=== PATIENT | female | born 1935 | race Caucasian/White ===

== ENCOUNTER 2017-01-15 19:04 | Emergency (ER) | payer OTHER ==
[~2017-01-15] VITALS: Ht 154.9 cm; Wt 56.8 kg
[~2017-01-15 19:04] MED LIST: FENT12DI6 TD; ZOLP5TAB6 PO
[2017-01-15 19:08] VITALS: Ht 154.9 cm; Wt 56.8 kg
--- NOTE | 2017-01-15 20:57 | EMERGENCY ROOM VISIT NOTE ---
History Report prepared by Jef: Ildefonso Vilchis Under the Supervision of: Dr. Parvez Burgos D.O. First contact with patient: 20:46 Chief Complaint: WRIST PAIN Stated Complaint: LEFT HAND/WRIST PAIN History of Present Illness The patient is an 81 year old female who presents to the Emergency Room with complaints of persistent left wrist pain that started this morning. Per patient' s daughter, the caregiver called her when the patient woke up because the patient was complaining of left wrist pain. The caregiver noticed that it was swollen and the patient was unable to use her hand. The patient's daughter and the caregiver are unsure of why the wrist was swollen. They are unaware of any recent falls or trauma. The patient is not ambulatory at baseline. 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 Per patient's daughter, the patient is more confused than baseline. The patient's daughter denies fevers or vomiting. The patient's HPI is limited due to dementia. Source of History: family History Limited By: dementia Onset: this morning Position: wrist (left) Timing: other (persistent) Associated Symptoms: No fevers, No vomiting Note: Other associated symptoms: left wrist swelling, unable to use left wrist, more confused than usual Review of Systems The patient's ROS is limited due to dementia. Past Medical & Surgical Medical Problems: (1) Benign hypertension (2) Colitis (3) Gastroesophageal reflux disease (4) Parkinson's disease (5) UTI (lower urinary tract infection) Surgical Problems: (1) Hx of vaginal hysterectomy Family History Cardiovascular disease FHx: heart disease Social History Smoking Status: Never Smoker Alcohol Use: none Drug Use: none Marital Status: single Housing Status: lives alone Occupation Status: retired Current/Historical Medications Scheduled Docusate Sodium (Stool Softener), 100 MG PO DIRECTED Donepezil HCl (Donepezil HCl), 10 MG PO HS Fentanyl (Duragesic), 12 MCG TD [id number] Levodopa/Carbidopa (Carbidopa/Levodopa 25-250 mg), 1 TAB PO QID Lisinopril (Lisinopril), 2.5 MG PO DAILY Omeprazole (Prilosec), 20 MG PO QD@1700 Quetiapine Fumarate (Quetiapine Fumarate), 100 MG PO HS Zolpidem Tartrate (Zolpidem Tartrate), 5 MG PO HS Allergies Coded Allergies: Risperidone (Verified Allergy, Intermediate, HALLUCINATION, 12/21/15) Sulfamethoxazole w/Trimethoprim (Verified Allergy, Intermediate, CONFUSION , 12/21/15) Diclofenac (Verified Allergy, Unknown, ., 12/21/15) [place] (Verified Allergy, Unknown, UNKNOWN, 12/21/15) Ropinirole (Verified Adverse Reaction, Intermediate, hallucinations, ) Physical Exam Vital Signs Date Time Temp Pulse Resp B/P Pulse Ox O2 Delivery O2 Flow Rate FiO2 01/15/17 21:54 36.6 62 18 128/70 93 01/15/17 21:43 62 18 128/70 93 Room Air 01/15/17 19:08 36.6 60 18 136/72 92 Room Air Physical Exam GENERAL: Patient is awake alert appears somewhat anxious and uncomfortable. EYES: The conjunctivae are clear. The pupils are round and reactive. EARS, NOSE, MOUTH AND THROAT: The nose is without any evidence of any deformity. Mucous membranes are moist tongue is midline NECK: The neck is nontender and supple. RESPIRATORY: Normal respiratory effort is noted there is no evidence of wheezing rhonchi or rales CARDIOVASCULAR: Regular rate and rhythm noted there no murmurs rubs or gallops normal S1 normal S2 GASTROINTESTINAL: The abdomen is soft. Bowel sounds are present in all quadrants. Abdomen is nontender MUSCULOSKELETAL/EXTREMITIES: Swelling to left wrist, no erythema or warmth to left wrist, swelling appearing to be mostly on ventral aspect. SKIN: There is no obvious evidence of any rash. There are no petechiae, pallor or cyanosis noted. Trace pedal edema bilaterally. NEUROLOGIC: Patient is at baseline according to family members. Medical Decision & Procedures ER Provider Diagnostic Interpretation: X-ray results as stated below per interpretation by me and the radiologist. LEFT WRIST 2 VIEW CLINICAL HISTORY: Left wrist pain following injury. COMPARISON: Left hand radiographs December 18, 2015. FINDINGS: This exam is compromised by difficulty with positioning. There is chondrocalcinosis within the TFCC. No acute fracture of the distal left radius or ulna is identified. A lucency within the medial aspect of the triquetrum does not appear to represent an acute fracture. Soft tissue swelling overlying the ulna is noted. IMPRESSION: 1. Lucency within the medial aspect of the triquetrum. This could reflect artifact or an age indeterminate fracture but does not appear acute. This could be correlated with point tenderness. 2. Study compromised by difficulty with positioning. No definite acute fracture. Electronically signed by: Estevan Fraire M.D. 01/15/2017 9:01 PM Dictated Date/Time: 01/15/2017 8:57 PM ED Course 2045: The patient was evaluated in room A3. A complete history and physical examination were performed. 2114: At this time, I reevaluated the patient and she was resting. 2134: Upon reevaluation, the patient is resting. I discussed the results and treatment plan with her. She verbalized agreement of the treatment plan. The patient was discharged home. Medical Decision Differential diagnosis: Etiologies such as fracture, dislocation, neurovascular compromise, compartment syndrome, soft tissue injury, as well as others were entertained. Nursing notes reviewed. The patient is an 81-year-old female who presented to the emergency department with family members for an evaluation of swelling over her left wrist. The patient has a history of Parkinson's and has severe dementia. There is no definite history of trauma but the family states it is likely that she did hurt her wrist. The patient's wrist was swollen and tender there is also some slight area of ecchymosis. It was not warm or erythematous. I do not feel it represents an infectious process rather I feel represents a trauma. The patient' s x-ray showed a questionable fracture of unknown acuity. The patient was placed in a splint. The family was given follow-up information with the on-call hand specialist. There are also encouraged to continue all medications as prescribed and encouraged to use Tylenol for pain. There were also encouraged to follow-up with the Specialist As Scheduled and See the Family Doctor As Well. There Are Also Encouraged to Return to the Emergency Department Immediately If Symptoms Change Worsen or the Need Arises. Impression Primary Impression: Fracture of left carpal bone Scribe Attestation The scribe's documentation has been prepared under my direction and personally reviewed by me in its entirety. I confirm that the note above accurately reflects all work, treatment, procedures, and medical decision making performed by me. Departure Information Dispostion Home / Self-Care Referrals Manohar Florez M.D. (PCP) Forms HOME CARE DOCUMENTATION FORM, IMPORTANT VISIT INFORMATION, WORK / SCHOOL INSTRUCTIONS Patient Instructions Fx [facility], My [facility] Additional Instructions Call the orthopedic physician in the morning to schedule a follow-up appointment. Continue all medications as prescribed. Continue using Tylenol as directed for pain.
--- NOTE | 2017-01-15 21:03 | DIAGNOSTIC IMAGING REPORT ---
LEFT WRIST 2 VIEW CLINICAL HISTORY: Left wrist pain following injury. COMPARISON: Left hand radiographs December 18, 2015. FINDINGS: This exam is compromised by difficulty with positioning. There is chondrocalcinosis within the TFCC. No acute fracture of the distal left radius or ulna is identified. A lucency within the medial aspect of the triquetrum does not appear to represent an acute fracture. Soft tissue swelling overlying the ulna is noted. IMPRESSION: 1. Lucency within the medial aspect of the triquetrum. This could reflect artifact or an age indeterminate fracture but does not appear acute. This could be correlated with point tenderness. 2. Study compromised by difficulty with positioning. No definite acute fracture. Electronically signed by: Estevan Fraire M.D. 01/15/2017 9:01 PM Dictated Date/Time: 01/15/2017 8:57 PM
[2017-01-15 21:54] VITALS: BP 128/70; PULSE 62; TEMP 36.6; O2SAT 93
[2017-07-13] MEDS ORDERED: LSN25 PO (13:25)
[2017-07-13] MEDS ORDERED: [UNRECOGNIZED DRUG - CODE] PO (13:25)
[2017-07-13] MEDS ORDERED: ARC10 PO (13:25)
[2017-07-13] MEDS ORDERED: SRQ100 PO (13:25)
[2017-07-20] MEDS ORDERED: LDDP5 TD (11:13)
[2017-07-20] MEDS ORDERED: DRGTP12 TOP (11:13)
[2017-07-20] MEDS ORDERED: CEFU250T15 PO (11:13)
== END 2017-01-15 21:43 | disposition home or self-care (01) ==
LOC: C.EDB 19:05 → C.EDA 21:43
DX: S62.102A Fracture of unspecified carpal bone, left wrist, initial encounter for closed fracture (principal); X58.XXXA Exposure to other specified factors, initial encounter; I10 Essential (primary) hypertension; K21.9 Gastro-esophageal reflux disease without esophagitis; G20 Parkinson's disease

== ENCOUNTER → 2017-02-08 | Outpatient (CLI) | payer OTHER ==
[~2017-02-08] MED LIST changes: +ALEN70TA4 PO; +ARC10 PO; +CEFU250T15 PO; +DOCU100C PO; +DRGTP12 TOP; +LDDP5 TD; +LSN25 PO; +MELA1TAB54 PO; +PRLSR20 PO; +SRQ100 PO; +[UNRECOGNIZED DRUG - CODE] PO
== END | disposition home or self-care (01) ==
LOC: C.RDSM 14:13
PROVIDERS: ATTEND Orthopaedic Surgery Sports Medicine
DX: M25.532 Pain in left wrist (principal)

== ENCOUNTER 2017-07-13 15:12 | Emergency (ER) | payer OTHER ==
[~2017-07-13] VITALS: Ht 154.9 cm; Wt 46.7 kg
[~2017-07-13 15:12] MED LIST changes: -ALEN70TA4 PO; -CEFU250T15 PO; -DOCU100C PO; -DRGTP12 TOP; -LDDP5 TD; -MELA1TAB54 PO; -PRLSR20 PO
[2017-07-13 15:24] VITALS: TEMP 36.7; Ht 154.9 cm; Wt 46.7 kg
[2017-07-13] MEDS ORDERED: SODIUM CHLORIDE 0.9% 1000ML 1,000 ML IV STA (15:41)
[2017-07-13] MEDS ORDERED: FENTANYL CITRATE INJ 50 MCG/1 ML 2 ML VIAL IV STA (15:41)
--- NOTE | 2017-07-13 15:56 | EMERGENCY ROOM VISIT NOTE ---
History Report prepared by Jef: Frederick Stapleton Under the Supervision of: Dr. Melisa Bolaños D.O. First contact with patient: 15:28 Chief Complaint: BACK PAIN Stated Complaint: LOWER BACK PAIN History of Present Illness The patient is an 81 year old female who presents to the Emergency Room with complaints of worsening lower back pain beginning 3 days ago. The patient's daughter states that the patient's pain radiates around the left side of her lower back to her lower abdomen. She reports that the patient has been complaining of left knee pain that radiates to her hip, and her left leg looks different. The daughter notes that the patient has had to swallow more often when eating. She reports the patient is also weak, and she is having difficulty ambulating. She states that the patient stays in a wheelchair at home and receives 24/ care. The daughter reports that the patient has not been eating regularly, and she has been experiencing chills. She denies fevers, diarrhea, hematochezia, dysuria, hematuria, and recent trauma. The daughter notes that she has been using pain patches from [employer]. She states she called the patient 's doctor and was given a prescription for Fentanyl patches, but the pharmacy was out of stock. The patient has a history of Parkinson's disease and dementia. Source of History: family (daughter) Onset: 3 days ago Position: back (lower) Timing: worsening Associated Symptoms: + chills, + abdominal pain, + weakness, No fevers, No hematochezia, No diarrhea Note: Associated symptoms: left knee pain, hip pain, difficulty swallowing, difficultly ambulating, decreased appetite Denies: dysuria, hematuria, recent trauma Review of Systems See HPI for pertinent positives & negatives. A total of 10 systems reviewed and were otherwise negative. Past Medical & Surgical Medical Problems: (1) Benign hypertension (2) Colitis (3) Gastroesophageal reflux disease (4) Parkinson's disease (5) UTI (lower urinary tract infection) Surgical Problems: (1) Hx of vaginal hysterectomy Family History Cardiovascular disease FHx: heart disease Social History Smoking Status: Never Smoker Alcohol Use: none Drug Use: none Marital Status: single Housing Status: lives alone Occupation Status: retired Current/Historical Medications Scheduled Alendronate Sodium (Fosamax), 70 MG PO WK Docusate Sodium (Stool Softener), 100 MG PO QAM Donepezil HCl (Donepezil HCl), 10 MG PO HS Fentanyl (Fentanyl), 12 MCG TOP [id number] Levodopa/Carbidopa (Carbidopa/Levodopa 25-250 mg), 1 TAB PO QID Lisinopril (Lisinopril), 2.5 MG PO QD@1700 Melatonin (Melatonin), 5 MG PO HS Omeprazole (Prilosec), 20 MG PO QD@1700 Quetiapine Fumarate (Quetiapine Fumarate), 100 MG PO HS Allergies Coded Allergies: Risperidone (Verified Allergy, Intermediate, HALLUCINATION, 12/21/15) Sulfamethoxazole w/Trimethoprim (Verified Allergy, Intermediate, CONFUSION , 12/21/15) Diclofenac (Verified Allergy, Unknown, ., 12/21/15) [place] (Verified Allergy, Unknown, UNKNOWN, 12/21/15) Ropinirole (Verified Adverse Reaction, Intermediate, hallucinations, ) Physical Exam Vital Signs Date Time Temp Pulse Resp B/P (MAP) Pulse Ox O2 Delivery O2 Flow Rate FiO2 07/13/17 21:13 64 21 91 07/13/17 21:01 136/90 07/13/17 20:58 70 24 84 07/13/17 20:43 68 23 97 07/13/17 20:30 161/99 07/13/17 20:28 68 20 95 07/13/17 20:13 71 14 94 07/13/17 20:12 69 07/13/17 20:05 146/104 07/13/17 19:58 71 25 95 07/13/17 19:43 75 28 93 07/13/17 19:23 77 18 154/66 96 Room Air 07/13/17 15:30 67 07/13/17 15:24 36.7 58 17 196/106 96 Room Air Physical Exam GENERAL: alert, well appearing, well nourished, no distress, non-toxic, elderly , cachectic EYE EXAM: normal conjunctiva, PERRL and EOM's grossly intact OROPHARYNX: no exudate, no erythema, lips, buccal mucosa, and tongue normal and mucous membranes are dry NECK: supple, no nuchal rigidity, no adenopathy, non-tender LUNGS: Clear to auscultation. Normal chest wall mechanics HEART: no murmurs, S1 normal and S2 normal ABDOMEN: abdomen soft, non-tender, normo-active bowel sounds, no masses, no rebound or guarding. PELVIC: Stable, no tenderness to palpation. BACK: Back is symmetrical on inspection and there is no deformity, no midline tenderness, no CVA tenderness. Left flank and low back are tender to palpation. SKIN: no rashes and no bruising UPPER EXTREMITIES: upper extremities are grossly normal. LOWER EXTREMITIES: No pitting edema. Atrophy bilaterally. No deformities. NEURO EXAM: Normal sensorium, cranial nerves II-XII grossly intact, normal speech, no gross weakness of arms, no gross weakness of legs. Generalized weakness. Medical Decision & Procedures ER Provider Diagnostic Interpretation: Radiology results have been interpreted by the radiologist and reviewed by me. CHEST ONE VIEW PORTABLE CLINICAL HISTORY: 81 years-old Female presenting with weakness, cough. TECHNIQUE: Portable upright AP view of the chest was obtained. COMPARISON: 07/10/2015. FINDINGS: Atherosclerosis of the aortic arch. Cardiac silhouette normal in size. Apparent masslike region in the left mid and upper lung. No other focal infiltrate. No large effusion or pneumothorax. Apparent radiolucency along the left superior paramediastinal region may represent a dilated gas filled esophagus. Previously noted fracture of the anterior right eighth rib is not appreciated on today's radiograph. S-shaped scoliotic curvature of the spine with associated degenerative change. Upper abdomen normal. IMPRESSION: 1. Findings concerning for mass in the left mid and upper lung. Further evaluation with CT is recommended. No other evidence of acute cardiopulmonary disease. Electronically signed by: Lorenzo Sotelo M.D. 07/13/2017 4:48 PM Dictated Date/Time: 07/13/2017 4:45 PM ADDENDUM ADDITIONAL IMPRESSION 5. Indeterminate left hepatic lesion. Further evaluation with right upper quadrant ultrasound versus dedicated contrast enhanced CT or MR of the liver recommended. The report will be called/faxed according to standard departmental protocol. Electronically signed by: Lorenzo Sotelo M.D. 07/13/2017 8:06 PM Dictated Date/Time: 07/13/2017 8:06 PM ORIGINAL REPORT ABD/PELVIS NO IV OR ORAL CONT CLINICAL HISTORY: 81 years-old Female presenting with abd pain/back pain. TECHNIQUE: Multidetector CT of the abdomen and pelvis was performed without the use of intravenous contrast. IV contrast: None. A dose lowering technique was used consistent with the principles of ALARA (as low as reasonably achievable). COMPARISON: 10/13/2015. CT DOSE (mGy.cm): The estimated cumulative dose is 364.10 mGy.cm. FINDINGS: Image quality is degraded by motion artifact. 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 Lung bases: Dependent opacities at the right lung base. Left atrial enlargement of the heart. Coronary artery and aortic valve calcification. Small pericardial effusion. No pleural effusion. Liver: Normal morphology. Normal density. Indeterminate lesion noted in the inferior left hepatic lobe (series 3 image 106). Biliary: Biliary ductal dilatation may be present, although stenosis is poorly evaluated the absence of intravenous contrast. Gallbladder sludge is suggested. Pancreas: Large duodenal diverticulum in the pancreatic head. Pancreatic parenchyma is atrophic. Spleen: Normal. Adrenal glands: Grossly normal. Kidneys and ureters: No nephrolithiasis. No hydronephrosis. Ureters poorly visualized. Bladder: Incompletely evaluated secondary to underdistention. Pelvic organs: Uterus surgically absent. Bowel: Sigmoid diverticulosis. Soft tissue in the right upper quadrant likely in the peripyloric region. Evaluation is highly limited due to motion artifact and the absence of oral and intravenous contrast. If present, this may represent abnormal wall thickening. No bowel obstruction, including no evidence of gastric outlet obstruction. Peritoneal cavity: No free fluid or intraperitoneal gas. Vasculature: Atherosclerosis of the normal caliber abdominal aorta. Lymph nodes: No enlarged lymph nodes in the abdomen or pelvis. Abdominal wall: Normal. Musculoskeletal: Postsurgical changes of 3 lag screw fixation across the left femoral neck. Degenerative changes of the pubic symphysis and lumbar spine as well as the sacroiliac joints. IMPRESSION: 1. Apparent soft tissue mass in the peripyloric region. Evaluation is highly limited due to motion artifact in the absence of oral or intravenous contrast. Further evaluation with CT with oral and intravenous contrast is recommended. No bowel obstruction. 2. No nephrolithiasis. 3. Dependent opacities in the right lung base, most likely atelectasis, although aspiration or infection cannot be excluded. 4. Postsurgical changes of left femoral neck fracture fixation. Electronically signed by: Lorenzo Sotelo M.D. 07/13/2017 6:30 PM Dictated Date/Time: 07/13/2017 6:[address] SCAN OF THE CHEST WITH IV CONTRAST CLINICAL HISTORY: Abnormal chest x-ray. COMPARISON STUDY: Chest x-ray dated 07/13/2017. Chest CT dated 09/05/2013. TECHNIQUE: Following the IV administration of 94 cc of Optiray 320, CT scan of the thorax was performed from the thoracic inlet to the upper abdomen. Images are reviewed in the axial, sagittal, and coronal planes. IV contrast was administered without complication. A dose lowering technique was utilized adhering to the principles of ALARA. The examination is degraded by motion artifact as well as by streak artifact from the patient's arms which could not be elevated above the chest. CT DOSE: 479.79 mGy.cm FINDINGS: Thyroid: Imaged portions of the thyroid gland are normal in size and attenuation. Thoracic aorta: There is atherosclerotic calcification of the thoracic aorta, which is normal in caliber and demonstrates standard 3-vessel arch anatomy. No dissection is seen. Pulmonary vasculature: The pulmonary trunk is normal in caliber. There are no filling defects identified in the central pulmonary vessels to indicate pulmonary embolus. Note that this examination was not protocoled for evaluation of the pulmonary arteries. Heart: The heart is normal in size and there is trace pericardial effusion. The coronary arteries are densely calcified. Lungs and pleural spaces: Evaluation of the lung parenchyma is significantly degraded by respiratory motion artifact. There is dependent atelectasis. No airspace consolidation is seen typical for pneumonia and there is no pleural effusion. The trachea and central airways are patent. No pulmonary lesion is identified. Mediastinum: There is no mediastinal lymphadenopathy. Marita: Clear. Axillae: There is no axillary lymphadenopathy. Upper abdomen: Partially visualized upper abdominal viscera is within normal limits. Skeletal structures: The skeletal structures are osteopenic. Degenerative change and hyperkyphosis are noted in the thoracic spine. No lytic or blastic bony lesions are seen. IMPRESSION: 1. Significantly streak and motion compromised examination. 2. There is no airspace consolidation or pleural effusion. 3. No left upper lobe abnormality is identified to correspond to the questioned chest x-ray findings. The x-ray findings were likely artifactual. No concerning pulmonary lesion is seen. Electronically signed by: Lonnie Lyles M.D. 07/13/2017 7:50 PM Dictated Date/Time: 07/13/2017 7:40 PM Laboratory Results 07/13/17 16:15 Red Blood Count 4.09, Mean Corpuscular Volume 93.2, Mean Corpuscular Hemoglobin 31.8, Mean Corpuscular Hemoglobin Concent 34.1, Mean Platelet Volume 9.4, Neutrophils (%) (Auto) 80.2, Lymphocytes (%) (Auto) 10.8, Monocytes (%) (Auto) 7.2, Eosinophils (%) (Auto) 0.9, Basophils (%) (Auto) 0.5, Neutrophils # (Auto) 6.25, Lymphocytes # (Auto) 0.84, Monocytes # (Auto) 0.56, Eosinophils # (Auto) 0.07, Basophils # (Auto) 0.04 07/13/17 16:15 Test 07/13/17 16:15 07/13/17 17:05 07/13/17 18:50 White Blood Count 7.79 K/uL (4.8-10.8) Red Blood Count 4.09 M/uL (4.2-5.4) Hemoglobin 13.0 g/dL (12.0-16.0) Hematocrit 38.1 % (37-47) Mean Corpuscular Volume 93.2 fL (80-100) Mean Corpuscular Hemoglobin 31.8 pg (25-34) Mean Corpuscular Hemoglobin Concent 34.1 g/dl (32-36) Platelet Count 312 K/uL (130-400) Mean Platelet Volume 9.4 fL (7.4-10.4) Neutrophils (%) (Auto) 80.2 % Lymphocytes (%) (Auto) 10.8 % Monocytes (%) (Auto) 7.2 % Eosinophils (%) (Auto) 0.9 % Basophils (%) (Auto) 0.5 % Neutrophils # (Auto) 6.25 K/uL (1.4-6.5) Lymphocytes # (Auto) 0.84 K/uL (1.2-3.4) Monocytes # (Auto) 0.56 K/uL (0.11-0.59) Eosinophils # (Auto) 0.07 K/uL (0-0.5) Basophils # (Auto) 0.04 K/uL (0-0.2) RDW Standard Deviation 44.3 fL (36.4-46.3) RDW Coefficient of Variation 13.0 % (11.5-14.5) Immature Granulocyte % (Auto) 0.4 % Immature Granulocyte # (Auto) 0.03 K/uL (0.00-0.02) Prothrombin Time 11.4 SECONDS (9.0-12.0) Prothromb Time International Ratio 1.1 (0.9-1.1) Est Creatinine Clear Calc Drug Dose 34.9 ml/min Estimated GFR () 68.5 Estimated GFR (Non- 59.1 BUN/Creatinine Ratio 24.1 (10-20) Calcium Level 9.3 mg/dl (8.5-10.1) Magnesium Level 1.9 mg/dl (1.8-2.4) Total Bilirubin 0.7 mg/dl (0.2-1) Aspartate Amino Transf (AST/SGOT) 18 U/L (15-37) Alanine Aminotransferase (ALT/SGPT) 9 U/L (12-78) Alkaline Phosphatase 53 U/L (45-117) Total Protein 7.1 gm/dl (6.4-8.2) Albumin 3.7 gm/dl (3.4-5.0) Globulin 3.4 gm/dl (2.5-4.0) Albumin/Globulin Ratio 1.1 (0.9-2) Bedside Hemoglobin 13.3 g/dl (12.0-16.0) Bedside Hematocrit 39 % (37-47) Bedside Sodium 143 mEq/L (135-144) Bedside Potassium 3.4 mEq/L (3.3-5.0) Bedside Chloride 102 mEq/L (101-112) Bedside Total CO2 28 mEq/l (24-31) Anion Gap 17.0 mmol/L (16-25) Bedside Blood Urea Nitrogen 22 mg/dl (7-18) Bedside Creatinine 0.9 mg/dl (0.6-1.3) Bedside Glucose (other) 120 mg/dl (70-99) Bedside Lactic Acid Venous 1.62 mmol/L (0.90-1.70) Bedside Ionized Calcium ([place]) 1.23 mmol/l (1.12-1.32) Urine Color DK YELLOW Urine Appearance CLEAR (CLEAR) Urine pH 5.0 (4.5-7.5) Urine Specific [place] 1.029 (1.000-1.030) Urine Protein NEG (NEG) Urine Glucose (UA) NEG (NEG) Urine Ketones 1+ (NEG) Urine Occult Blood NEG (NEG) Urine Nitrite NEG (NEG) Urine Bilirubin NEG (NEG) Urine Urobilinogen NEG (NEG) Urine Leukocyte Esterase NEG (NEG) Laboratory results per my review. Medications Administered Medications (Trade) Dose Ordered Sig/Luis Route Start Time Stop Time Status Last Admin Dose Admin Sodium Chloride 1,000 ml @ 250 mls/hr Q4H STAT IV 07/13/17 15:41 07/13/17 19:40 DC 07/13/17 15:41 250 MLS/HR Fentanyl Citrate (Fentanyl Inj) 25 mcg NOW STAT IV 07/13/17 15:41 07/13/17 15:43 DC 07/13/17 17:43 25 MCG Carbidopa/Levodopa (Sinemet 25/ 250MG Tab) 1 tab NOW STAT PO 07/13/17 17:52 07/13/17 17:54 DC 07/13/17 19:07 1 TAB Lorazepam (Ativan Inj) 0.5 mg NOW STAT IV 07/13/17 18:46 07/13/17 18:47 DC 07/13/17 19:05 0.5 MG Lisinopril (Zestril Tab) 2.5 mg TODAY@1752 PO 07/13/17 17:52 07/13/17 19:45 DC 07/13/17 19:25 2.5 MG Lidocaine (Lidoderm Patch 5%) 1 patch NOW STAT TD 07/13/17 21:31 07/13/17 21:32 DC 07/13/17 21:39 1 PATCH ECG Indication: weakness Rate (beats per minute): 57 Rhythm: sinus bradycardia Findings: 1st degree AV block, no acute ischemic change, other (Normal axis, normal QRS, normal QTc, low voltage throughout) ED Course 1529: The patient was evaluated in room A12A. A complete history and physical exam was performed. 1541: Ordered Fentanyl Citrate 25mcg IV, Sodium Chloride 1000 ml @ 250 mls/hr IV 175: Ordered Lisinopril 2.5mg PO, Carbidopa/Levodopa 1 tab PO 1833: I reevaluated the patient and updated her of her current exam findings. The patient is receiving her IV fluids. 1845: Ordered Ativan 0.5mg IV 2047: Upon reevaluation, the patient is feeling better. I discussed the findings and the treatment plan with the patient and her family. They verbalized agreement and understanding. The patient was discharged home. Medical Decision Differential diagnoses includes but is not limited to lumbar radiculopathy, muscle strain, facture, cauda equina, mass, and disc herniation, uti, pyelo, stone, aaa, dissection Patient had difficult exam with several chronic comorbidities and history limited by dementia. Patient with 24 7 caregivers in the home that helped family whom she lives with. Slightly decreased oral intake recently and family felt slightly more lethargic. Patient complained of pain and so was brought in for evaluation. Labs and imaging subsequently all reviewed, discussed with family, and found to be reassuring. Patient with stable vital signs here, was given IV fluid hydration as precaution given slightly decreased by mouth intake. Patient here afebrile, no evidence of bacteremia/sepsis. Discussed close follow-up with family doctor. Patient only been seen for back pain by family doctor and was to be started on a fentanyl patch. Patient given dose of pain medication here in Lidoderm patch applied to her back. Given negative evaluation at this time, additional bedside discussion with family was performed , they're comfortable taking her home and continuing her usual care and medications, and will follow-up with her family doctor next week. Discussed with him at length symptoms to watch and return for, possible differential diagnosis, they verbalized understanding were agreeable with plan. I do not feel patient's condition warranted additional spinal imaging including MRI at this time. Discussed with the family that should her back pain persist or worsen, that her family doctor may discuss this with them. Medication Reconcilliation Current Medication List: was personally reviewed by me Blood Pressure Screening Patient's blood pressure: Elevated blood pressure Blood pressure disposition: Referred to PCP Impression Primary Impression: Back pain Additional Impressions: Dementia Parkinson disease Dehydration Scribe Attestation The scribe's documentation has been prepared under my direction and personally reviewed by me in its entirety. I confirm that the note above accurately reflects all work, treatment, procedures, and medical decision making performed by me. Departure Information Dispostion Home / Self-Care Referrals Manohar Florez M.D. (PCP) Forms HOME CARE DOCUMENTATION FORM, IMPORTANT VISIT INFORMATION Patient Instructions My [facility] Additional Instructions Please follow up with your family doctor. They will receive copies of the studies from today. Please continue the regular medications as prescribed. Please continue to plan to start applying a pain patch. They may suggest additional testing based on the evaluation today. Please encouraged patient to eat and drink regularly. If you have any other new concerns including fevers, change in mentation, vomiting, diarrhea, or any other new concerns please return the emergency room. Problem Qualifiers Primary Impression: Back pain Back pain location: low back pain Chronicity: acute Back pain laterality: bilateral Sciatica presence: without sciatica Qualified Codes: M54.5 - Low back pain Additional Impressions: Dementia Dementia type: unspecified type Dementia behavioral disturbance: without behavioral disturbance Qualified Codes: F03.90 - Unspecified dementia without behavioral disturbance
[2017-07-13] MEDS ORDERED: ALEN70TA4 PO (15:57)
[2017-07-13] MEDS ORDERED: MELA1TAB54 PO (15:57)
[2017-07-13] MEDS ORDERED: DRGTP12 TOP (16:02)
[2017-07-13] MEDS ORDERED: DOCU100C PO (16:24)
[2017-07-13 16:25] LABS: BASO % 0.5 %; BASO ABS # 0.04 K/uL (0-0.2); COMPLETE YES; EOS % 0.9 %; HEMATOCRIT 38.1 % (37-47); IG% 0.4 %; LYMPH % 10.8 %; LYMPH ABS # 0.84 K/uL (1.2-3.4); MEAN CELL VOLUME 93.2 fL (80-100); MEAN CORPUSCULAR HEMOGLOBIN 31.8 pg (25-34); MEAN CORPUSCULAR HGB CONC 34.1 g/dl (32-36); MEAN PLATELET VOLUME 9.4 fL (7.4-10.4); MONO % 7.2 %; NEUT % 80.2 %; PLATELET COUNT 312 K/uL (130-400); RED BLOOD COUNT 4.09 M/uL (4.2-5.4); WHITE BLOOD COUNT 7.79 K/uL (4.8-10.8)
[2017-07-13 16:38] LABS: INR 1.1 (0.9-1.1); PROTHROMBIN TIME (PATIENT) 11.4 SECONDS (9.0-12.0)
[2017-07-13 16:45] LABS: BUN/CREATININE RATIO 24.1 (10-20); CALCIUM 9.3 mg/dl (8.5-10.1); CREATININE 0.9 mg/dl (0.60-1.20); MAGNESIUM 1.9 mg/dl (1.8-2.4); POTASSIUM 3.4 mmol/L (3.5-5.1)
--- NOTE | 2017-07-13 16:49 | DIAGNOSTIC IMAGING REPORT ---
CHEST ONE VIEW PORTABLE CLINICAL HISTORY: 81 years-old Female presenting with weakness, cough. TECHNIQUE: Portable upright AP view of the chest was obtained. COMPARISON: 07/10/2015. FINDINGS: Atherosclerosis of the aortic arch. Cardiac silhouette normal in size. Apparent masslike region in the left mid and upper lung. No other focal infiltrate. No large effusion or pneumothorax. Apparent radiolucency along the left superior paramediastinal region may represent a dilated gas filled esophagus. Previously noted fracture of the anterior right eighth rib is not appreciated on today's radiograph. S-shaped scoliotic curvature of the spine with associated degenerative change. Upper abdomen normal. IMPRESSION: 1. Findings concerning for mass in the left mid and upper lung. Further evaluation with CT is recommended. No other evidence of acute cardiopulmonary disease. Electronically signed by: Lorenzo Sotelo M.D. 07/13/2017 4:48 PM Dictated Date/Time: 07/13/2017 4:45 PM
[2017-07-13 16:50] LABS: ALB/GLOB RATIO 1.1 (0.9-2)
[2017-07-13] MEDS ORDERED: PRLSR20 PO (17:33)
[2017-07-13] MEDS ORDERED: LISINOPRIL 2.5 MG TAB PO SCH (17:52)
[2017-07-13] MEDS ORDERED: LISINOPRIL 20 MG TAB PO STA (17:52)
[2017-07-13] MEDS ORDERED: CARBIDOPA/LEVODOPA 25-250 1 EA TAB PO STA (17:52)
[2017-07-13] MEDS ORDERED: LISINOPRIL PO STA ×2 (18:15)
--- NOTE | 2017-07-13 18:31 | DIAGNOSTIC IMAGING REPORT ---
ADDENDUM ADDITIONAL IMPRESSION 5. Indeterminate left hepatic lesion. Further evaluation with right upper quadrant ultrasound versus dedicated contrast enhanced CT or MR of the liver recommended. The report will be called/faxed according to standard departmental protocol. Electronically signed by: Lorenzo Sotelo M.D. 07/13/2017 8:06 PM Dictated Date/Time: 07/13/2017 8:06 PM ORIGINAL REPORT ABD/PELVIS NO IV OR ORAL CONT CLINICAL HISTORY: 81 years-old Female presenting with abd pain/back pain. TECHNIQUE: Multidetector CT of the abdomen and pelvis was performed without the use of intravenous contrast. IV contrast: None. A dose lowering technique was used consistent with the principles of ALARA (as low as reasonably achievable). COMPARISON: 10/13/2015. CT DOSE (mGy.cm): The estimated cumulative dose is 364.10 mGy.cm. FINDINGS: Image quality is degraded by motion artifact. 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 Lung bases: Dependent opacities at the right lung base. Left atrial enlargement of the heart. Coronary artery and aortic valve calcification. Small pericardial effusion. No pleural effusion. Liver: Normal morphology. Normal density. Indeterminate lesion noted in the inferior left hepatic lobe (series 3 image 106). Biliary: Biliary ductal dilatation may be present, although stenosis is poorly evaluated the absence of intravenous contrast. Gallbladder sludge is suggested. Pancreas: Large duodenal diverticulum in the pancreatic head. Pancreatic parenchyma is atrophic. Spleen: Normal. Adrenal glands: Grossly normal. Kidneys and ureters: No nephrolithiasis. No hydronephrosis. Ureters poorly visualized. Bladder: Incompletely evaluated secondary to underdistention. Pelvic organs: Uterus surgically absent. Bowel: Sigmoid diverticulosis. Soft tissue in the right upper quadrant likely in the peripyloric region. Evaluation is highly limited due to motion artifact and the absence of oral and intravenous contrast. If present, this may represent abnormal wall thickening. No bowel obstruction, including no evidence of gastric outlet obstruction. Peritoneal cavity: No free fluid or intraperitoneal gas. Vasculature: Atherosclerosis of the normal caliber abdominal aorta. Lymph nodes: No enlarged lymph nodes in the abdomen or pelvis. Abdominal wall: Normal. Musculoskeletal: Postsurgical changes of 3 lag screw fixation across the left femoral neck. Degenerative changes of the pubic symphysis and lumbar spine as well as the sacroiliac joints. IMPRESSION: 1. Apparent soft tissue mass in the peripyloric region. Evaluation is highly limited due to motion artifact in the absence of oral or intravenous contrast. Further evaluation with CT with oral and intravenous contrast is recommended. No bowel obstruction. 2. No nephrolithiasis. 3. Dependent opacities in the right lung base, most likely atelectasis, although aspiration or infection cannot be excluded. 4. Postsurgical changes of left femoral neck fracture fixation. Electronically signed by: Lorenzo Sotelo M.D. 07/13/2017 6:30 PM Dictated Date/Time: 07/13/2017 6:17 PM
[2017-07-13] MEDS ORDERED: OPTIRAY 320 IV PRN (18:45)
[2017-07-13] MEDS ORDERED: LORAZEPAM 2 MG/ML 1 ML VIAL IV STA (18:46)
[2017-07-13 19:04] LABS: URINE APPEARANCE CLEAR (CLEAR); URINE COLOR DK YELLOW; URINE NITRITE NEG (NEG); URINE SPECIFIC GRAVITY 1.029 (1.000-1.030); UROBILINOGEN NEG (NEG)
[2017-07-13 19:09] LABS: MANUAL MICROSCOPIC REQUIRED? NO; REVIEW REQ? NO; URINE BILIRUBIN NEG (NEG)
--- NOTE | 2017-07-13 19:52 | DIAGNOSTIC IMAGING REPORT ---
CT SCAN OF THE CHEST WITH IV CONTRAST CLINICAL HISTORY: Abnormal chest x-ray. COMPARISON STUDY: Chest x-ray dated 07/13/2017. Chest CT dated 09/05/2013. TECHNIQUE: Following the IV administration of 94 cc of Optiray 320, CT scan of the thorax was performed from the thoracic inlet to the upper abdomen. Images are reviewed in the axial, sagittal, and coronal planes. IV contrast was administered without complication. A dose lowering technique was utilized adhering to the principles of ALARA. The examination is degraded by motion artifact as well as by streak artifact from the patient's arms which could not be elevated above the chest. CT DOSE: 479.79 mGy.cm FINDINGS: Thyroid: Imaged portions of the thyroid gland are normal in size and attenuation. Thoracic aorta: There is atherosclerotic calcification of the thoracic aorta, which is normal in caliber and demonstrates standard 3-vessel arch anatomy. No dissection is seen. Pulmonary vasculature: The pulmonary trunk is normal in caliber. There are no filling defects identified in the central pulmonary vessels to indicate pulmonary embolus. Note that this examination was not protocoled for evaluation of the pulmonary arteries. Heart: The heart is normal in size and there is trace pericardial effusion. The coronary arteries are densely calcified. Lungs and pleural spaces: Evaluation of the lung parenchyma is significantly degraded by respiratory motion artifact. There is dependent atelectasis. No airspace consolidation is seen typical for pneumonia and there is no pleural effusion. The trachea and central airways are patent. No pulmonary lesion is identified. Mediastinum: There is no mediastinal lymphadenopathy. Marita: Clear. Axillae: There is no axillary lymphadenopathy. Upper abdomen: Partially visualized upper abdominal viscera is within normal limits. Skeletal structures: The skeletal structures are osteopenic. Degenerative change and hyperkyphosis are noted in the thoracic spine. No lytic or blastic bony lesions are seen. IMPRESSION: 1. Significantly streak and motion compromised examination. 2. There is no airspace consolidation or pleural effusion. 3. No left upper lobe abnormality is identified to correspond to the questioned chest x-ray findings. The x-ray findings were likely artifactual. No concerning pulmonary lesion is seen. Electronically signed by: Lonnie Lyles M.D. 07/13/2017 7:50 PM Dictated Date/Time: 07/13/2017 7:40 PM
[2017-07-13 21:01] VITALS: BP 136/90
[2017-07-13 21:13] VITALS: PULSE 64; O2SAT 91
[2017-07-13] MEDS ORDERED: LIDODERM (LIDOCAINE) PATCH 5% TD STA (21:31)
[2017-07-14 14:51] LABS: ISTAT CREATININE 0.9 mg/dl (0.6-1.3); ISTAT HEMOGLOBIN 13.3 g/dl (12.0-16.0); ISTAT IONIZED CALCIUM 1.23 mmol/l (1.12-1.32)
[2017-07-20] MEDS ORDERED: DRGTP12 TOP (11:13)
[2017-07-20] MEDS ORDERED: LDDP5 TD (11:13)
[2017-07-20] MEDS ORDERED: CEFU250T15 PO (11:13)
== END 2017-07-13 21:41 | disposition home or self-care (01) ==
LOC: EDBD 15:12 → C.EDA 15:13
DX: M54.5 Low back pain (principal); F03.90 Unspecified dementia, unspecified severity, without behavioral disturbance, psychotic disturbance, mood disturbance, and anxiety; G20 Parkinson's disease; E86.0 Dehydration; I10 Essential (primary) hypertension; K52.9 Noninfective gastroenteritis and colitis, unspecified; K21.9 Gastro-esophageal reflux disease without esophagitis; Z82.49 Family history of ischemic heart disease and other diseases of the circulatory system

== ENCOUNTER 2017-07-15 14:29 | Inpatient (IN) | payer OTHER ==
[~2017-07-15] VITALS: Ht 160 cm; Wt 42.4 kg
[~2017-07-15 14:29] MED LIST changes: +ALEN70TA4 PO; +DOCU100C PO; +DRGTP12 TOP; -FENT12DI6 TD; +MELA1TAB54 PO; +PRLSR20 PO; -ZOLP5TAB6 PO
[2017-07-15] MEDS ORDERED: SODIUM CHLORIDE 0.9% 1000ML 1,000 ML IV ONE (14:51)
[2017-07-15] MEDS ORDERED: SODIUM CHLORIDE 0.9% 1000ML 1,000 ML IV STA (14:51)
--- NOTE | 2017-07-15 14:51 | EMERGENCY ROOM VISIT NOTE ---
History Report prepared by Jef: Tere Robbins Under the Supervision of: Dr. Go Hebert M.D. First contact with patient: 14:43 Stated Complaint: DEHYDRATION/CONFUSED History of Present Illness The patient is a 81 year old female who presents to the Emergency Room with complaints of weakness beginning 6 days ago. Per her daughter, the patient has lower back pain, wants to sleep all the time, and has not been taking her medications. Her daughter believes that the patient is dehydrated, as she has not been urinating frequently. The patient has not had any fevers, vomiting, or diarrhea. The patient lives at home with 24 hour care and has mild dementia. She has not had any recent falls, and is not on blood thinners. Source of History: patient Onset: 6 days ago Position: other (global) Quality: other (weakness) Associated Symptoms: + back pain (lower), No fevers, No vomiting, No diarrhea Review of Systems See HPI for pertinent positives & negatives. A total of 10 systems reviewed and were otherwise negative. Past Medical & Surgical Medical Problems: (1) Benign hypertension (2) Colitis (3) Gastroesophageal reflux disease (4) Parkinson's disease (5) UTI (lower urinary tract infection) Surgical Problems: (1) Hx of vaginal hysterectomy Old medical records were reviewed. Nurse's notes were reviewed and I agree with. Family History Cardiovascular disease FHx: heart disease Social History Smoking Status: Never Smoker Alcohol Use: none Drug Use: none Marital Status: single Housing Status: lives alone Occupation Status: retired Current/Historical Medications Scheduled Alendronate Sodium (Fosamax), 70 MG PO WK Docusate Sodium (Stool Softener), 100 MG PO QAM Donepezil HCl (Donepezil HCl), 10 MG PO HS Fentanyl (Fentanyl), 12 MCG TOP [id number] Levodopa/Carbidopa (Carbidopa/Levodopa 25-250 mg), 1 TAB PO QID Lisinopril (Lisinopril), 2.5 MG PO QD@1700 Melatonin (Melatonin), 5 MG PO HS Omeprazole (Prilosec), 20 MG PO QD@1700 Quetiapine Fumarate (Quetiapine Fumarate), 100 MG PO HS Allergies Coded Allergies: Risperidone (Verified Allergy, Intermediate, HALLUCINATION, 07/15/17) Sulfamethoxazole w/Trimethoprim (Verified Allergy, Intermediate, CONFUSION , 07/15/17) Diclofenac (Verified Allergy, Unknown, ., 07/15/17) [place] (Verified Allergy, Unknown, UNKNOWN, 07/15/17) Ropinirole (Verified Adverse Reaction, Intermediate, hallucinations, ) Physical Exam Vital Signs Date Time Temp Pulse Resp B/P (MAP) Pulse Ox O2 Delivery O2 Flow Rate FiO2 07/15/17 18:36 80 15 96 07/15/17 18:06 70 16 95 07/15/17 17:36 75 11 97 07/15/17 17:31 189/144 198/94 07/15/17 17:29 77 96 07/15/17 16:29 74 12 96 07/15/17 15:59 74 12 97 07/15/17 15:29 81 14 95 07/15/17 14:59 76 13 95 07/15/17 14:46 37.0 77 18 158/71 98 Room Air 07/15/17 14:40 82 07/15/17 14:34 158/71 Physical Exam General: Well developed well nourished ill older female in no acute distress, breathing comfortably on room air. Difficult to understand. Sleepy, but arousable. HEENT: Normal cephalic atraumatic. Pupils are equal round and reactive to light. Extraocular movements are intact. Oropharynx is pink with moist mucous membranes. No swelling of the mouth lips or tongue. Neck: Supple with a midline trachea. No meningeal signs or stiffness, no JVD or bruits. No Stridor. Chest: Clear to auscultation bilaterally. No wheezes or rhonchi. No increased work of breathing. Heart: regular rate and rhythm. Abdomen: Soft nontender, nondistended without rebound guarding or rigidity. Extremities: No cyanosis clubbing or edema. No calf tenderness or assymetry Spine/Back. Non tender to palpation. No CVA tenderness Skin: Good turgor without rashes. Neurologic exam: Cranial nerves two through 12 are intact. Motor and sensation are intact and symmetrical throughout. Medical Decision & Procedures ER Provider Diagnostic Interpretation: Radiology results as stated below per my review and radiologist interpretation: CHEST ONE VIEW PORTABLE CLINICAL HISTORY: 81 years-old Female presenting with CHEST PAIN. TECHNIQUE: Portable upright AP view of the chest was obtained. COMPARISON: 07/13/2017. FINDINGS: Atherosclerosis of aortic arch. Cardiac silhouette normal. Previously noted masslike region in the left midlung is consistent with costochondral calcification. No focal infiltrate. Questionable right pleural thickening or trace effusion. No large effusion or pneumothorax. Scoliosis. Upper abdomen normal. IMPRESSION: 1. No acute cardiopulmonary disease. Electronically signed by: Lorenzo Sotelo M.D. 07/15/2017 3:53 PM Dictated Date/Time: 07/15/2017 3:52 PM Radiology results as stated below per my review and radiologist interpretation: HEAD WITHOUT CONTRAST (CT) CLINICAL HISTORY: 81 years-old Female presenting with altered loc. TECHNIQUE: Multidetector CT imaging of the head was performed without the use of intravenous contrast. IV contrast: None. A dose lowering technique was used consistent with the principles of ALARA (as low as reasonably achievable). COMPARISON: 11/28/2015. CT DOSE (mGy.cm): The estimated cumulative dose is 1228.53 mGy.cm. FINDINGS: Nurse Transition topogram: Unremarkable. Quality is degraded by motion artifact. Ventricles and sulci normal in size. Periventricular and subcortical white matter hypoattenuation, nonspecific but likely indicative of chronic small vessel ischemic change. Old lacunar infarct in the left basal ganglia. No mass effect or midline shift. No hemorrhage or acute territorial infarct. No extra-axial fluid collection. Paranasal sinuses and mastoid air cells clear. Calvarium intact. IMPRESSION: 1. No acute intracranial pathology. 2. Chronic small vessel ischemic change and old lacunar infarct left basal ganglia. Electronically signed by: Lorenzo Sotelo M.D. 07/15/2017 5:12 PM Dictated Date/Time: 07/15/2017 5:10 PM Laboratory Results 07/15/17 15:24 Red Blood Count 4.03, Mean Corpuscular Volume 93.5, Mean Corpuscular Hemoglobin 32.3, Mean Corpuscular Hemoglobin Concent 34.5, Mean Platelet Volume 9.2, Neutrophils (%) (Auto) 70.5, Lymphocytes (%) (Auto) 16.6, Monocytes (%) (Auto) 9.2, Eosinophils (%) (Auto) 2.6, Basophils (%) (Auto) 0.9, Neutrophils # (Auto) 6.34, Lymphocytes # (Auto) 1.49, Monocytes # (Auto) 0.83, Eosinophils # (Auto) 0.23, Basophils # (Auto) 0.08 07/15/17 15:24 Test 07/15/17 15:24 07/15/17 15:32 07/15/17 15:33 07/15/17 16:30 White Blood Count 8.99 K/uL (4.8-10.8) Red Blood Count 4.03 M/uL (4.2-5.4) Hemoglobin 13.0 g/dL (12.0-16.0) Hematocrit 37.7 % (37-47) Mean Corpuscular Volume 93.5 fL (80-100) Mean Corpuscular Hemoglobin 32.3 pg (25-34) Mean Corpuscular Hemoglobin Concent 34.5 g/dl (32-36) Platelet Count 328 K/uL (130-400) Mean Platelet Volume 9.2 fL (7.4-10.4) Neutrophils (%) (Auto) 70.5 % Lymphocytes (%) (Auto) 16.6 % Monocytes (%) (Auto) 9.2 % Eosinophils (%) (Auto) 2.6 % Basophils (%) (Auto) 0.9 % Neutrophils # (Auto) 6.34 K/uL (1.4-6.5) Lymphocytes # (Auto) 1.49 K/uL (1.2-3.4) Monocytes # (Auto) 0.83 K/uL (0.11-0.59) Eosinophils # (Auto) 0.23 K/uL (0-0.5) Basophils # (Auto) 0.08 K/uL (0-0.2) RDW Standard Deviation 45.2 fL (36.4-46.3) RDW Coefficient of Variation 13.2 % (11.5-14.5) Immature Granulocyte % (Auto) 0.2 % Immature Granulocyte # (Auto) 0.02 K/uL (0.00-0.02) Anion Gap 7.0 mmol/L (3-11) Est Creatinine Clear Calc Drug Dose 23.8 ml/min Estimated GFR () 48.4 Estimated GFR (Non- 41.8 BUN/Creatinine Ratio 20.9 (10-20) Calcium Level 9.2 mg/dl (8.5-10.1) Total Bilirubin 0.6 mg/dl (0.2-1) Direct Bilirubin 0.2 mg/dl (0-0.2) Aspartate Amino Transf (AST/SGOT) 17 U/L (15-37) Alanine Aminotransferase (ALT/SGPT) 10 U/L (12-78) Alkaline Phosphatase 54 U/L (45-117) Total Protein 7.3 gm/dl (6.4-8.2) Albumin 3.9 gm/dl (3.4-5.0) Lipase 136 U/L (73-393) Thyroid Stimulating Hormone (TSH) 1.080 uIu/ml (0.300-4.500) Bedside Troponin I < 0.030 ng/ml (0-0.045) Bedside Lactic Acid Venous 1.75 mmol/L (0.90-1.70) Urine Color DK YELLOW Urine Appearance CLOUDY (CLEAR) Urine pH 5.0 (4.5-7.5) Urine Specific [place] 1.039 (1.000-1.030) Urine Protein 1+ (NEG) Urine Glucose (UA) NEG (NEG) Urine Ketones 1+ (NEG) Urine Occult Blood NEG (NEG) Urine Nitrite POS (NEG) Urine Bilirubin NEG (NEG) Urine Urobilinogen NEG (NEG) Urine Leukocyte Esterase MODERATE (NEG) Urine WBC (Auto) >30 /hpf (0-5) Urine RBC (Auto) 5-10 /hpf (0-4) Urine Hyaline Casts (Auto) 5-10 /lpf (0-5) Urine Epithelial Cells (Auto) 10-20 /lpf (0-5) Urine Bacteria (Auto) 4+ (NEG) Urine Pathogenic Casts /lpf (0) Laboratory studies as stated above per my review. Medications Administered Medications (Trade) Dose Ordered Sig/Luis Route Start Time Stop Time Status Last Admin Dose Admin Sodium Chloride 1,000 ml @ 999 mls/hr Q1H1M STAT IV 07/15/17 14:51 07/15/17 15:51 DC 07/15/17 16:40 999 MLS/HR Sodium Chloride 1,000 ml @ 150 mls/hr Q6H40M ONCE IV 07/15/17 14:51 07/15/17 20:50 DC 07/15/17 17:56 150 MLS/HR Ceftriaxone Sodium (Rocephin Inj) 1 gm NOW STAT IV 07/15/17 17:38 07/15/17 17:40 DC 07/15/17 17:56 1 GM ECG Indication: weakness Rate (beats per minute): 78 Rhythm: normal sinus Findings: nonspecific-ST abn, no acute ischemic change (compared to July 13, 2017), other (LVH, poor baseline, prolonged QT) ED Course 1445: Past medical records reviewed. The patient was evaluated in room C5, and a complete history and physical examination were performed. 1451: Ordered Sodium Chloride 1,000 ml @ 150 mls/hr IV, Sodium Chloride 1,000 ml @ 999 mls/hr IV. 1738: Ordered Rocephin Inj 1 gm IV. 1750: Discussed the patient's case with Dr. Recio. The patient will be evaluated for further management. 1800: Upon reevaluation, the patient is resting. I discussed the results and treatment plan with the patient. She verbalized agreement of the treatment plan. The patient will be evaluated for further management by. Medical Decision Differentials include, but are not limited to; dehydration, infection, sepsis, electrolyte metabolic imbalance, intracranial process, medication side effect. This patient comes in as described above. She was placed in room C5. She comes in with increasing weakness and the decreased by mouth intake. She was seen here the other day for similar type complaint. She has back pain they put her on Fentanyl patches. She also has dementia but seemed much more confused than normal. She's had no fevers. He has had no trauma. She's had no focal neurologic deficits. IV access was established and she was gently hydrated with an IV normal saline bolus. Her lactic acid was obtained is not significantly elevated. CAT scan of her head and EKG and chest x-ray were also obtained. She has nothing to suggest acute coronary syndrome or significant arrhythmia. CAT scan of her head is unremarkable. She has no significant electrode or metabolic abnormality otherwise. Her urinalysis does suggest a UTI with backup culture is pending. Her lactic acid is not significant elevated. She's been hypertensive as she has not been taking her medications. She was given IV Rocephin 1 g. I do think she needs to be admitted for further treatment and evaluation and hydration. I have consulted the [facility] hospitalist. Medication Reconcilliation Current Medication List: was personally reviewed by me Blood Pressure Screening Patient's blood pressure: Elevated blood pressure Blood pressure disposition: Elevated BP felt to be situational Consults Time Called: 1729 Consulting Physician: Dr. Recio-[facility] Returned Call: 1750 Discussed the patient's case. The patient will be evaluated for further management. Impression Primary Impression: Altered mental status Additional Impressions: Dehydration UTI (urinary tract infection) Scribe Attestation The scribe's documentation has been prepared under my direction and personally reviewed by me in its entirety. I confirm that the note above accurately reflects all work, treatment, procedures, and medical decision making performed by me. Departure Information Dispostion Being Evaluated By Hospitalist Referrals Manohar Florez M.D. (PCP) Problem Qualifiers
[2017-07-15 15:36] LABS: BASO % 0.9 %; BASO ABS # 0.08 K/uL (0-0.2); COMPLETE YES; EOS % 2.6 %; HEMATOCRIT 37.7 % (37-47); IG% 0.2 %; LYMPH % 16.6 %; LYMPH ABS # 1.49 K/uL (1.2-3.4); MEAN CELL VOLUME 93.5 fL (80-100); MEAN CORPUSCULAR HEMOGLOBIN 32.3 pg (25-34); MEAN CORPUSCULAR HGB CONC 34.5 g/dl (32-36); MEAN PLATELET VOLUME 9.2 fL (7.4-10.4); MONO % 9.2 %; NEUT % 70.5 %; PLATELET COUNT 328 K/uL (130-400); RED BLOOD COUNT 4.03 M/uL (4.2-5.4); WHITE BLOOD COUNT 8.99 K/uL (4.8-10.8)
[2017-07-15 15:53] LABS: BUN/CREATININE RATIO 20.9 (10-20); CALCIUM 9.2 mg/dl (8.5-10.1); CREATININE 1.2 mg/dl (0.60-1.20); POTASSIUM 3.3 mmol/L (3.5-5.1)
--- NOTE | 2017-07-15 15:54 | DIAGNOSTIC IMAGING REPORT ---
CHEST ONE VIEW PORTABLE CLINICAL HISTORY: 81 years-old Female presenting with CHEST PAIN. TECHNIQUE: Portable upright AP view of the chest was obtained. COMPARISON: 07/13/2017. FINDINGS: Atherosclerosis of aortic arch. Cardiac silhouette normal. Previously noted masslike region in the left midlung is consistent with costochondral calcification. No focal infiltrate. Questionable right pleural thickening or trace effusion. No large effusion or pneumothorax. Scoliosis. Upper abdomen normal. IMPRESSION: 1. No acute cardiopulmonary disease. Electronically signed by: Lorenzo Sotelo M.D. 07/15/2017 3:53 PM Dictated Date/Time: 07/15/2017 3:52 PM
[2017-07-15 16:04] LABS: THYROID STIMULATING HORMONE 1.08 uIu/ml (0.300-4.500)
[2017-07-15 16:45] LABS: URINE APPEARANCE CLOUDY (CLEAR); URINE COLOR DK YELLOW; URINE NITRITE POS (NEG); URINE SPECIFIC GRAVITY 1.039 (1.000-1.030); UROBILINOGEN NEG (NEG)
[2017-07-15 16:59] LABS: MANUAL MICROSCOPIC REQUIRED? NO; REVIEW REQ? YES; URINE BILIRUBIN NEG (NEG)
--- NOTE | 2017-07-15 17:13 | DIAGNOSTIC IMAGING REPORT ---
HEAD WITHOUT CONTRAST (CT) CLINICAL HISTORY: 81 years-old Female presenting with altered loc. TECHNIQUE: Multidetector CT imaging of the head was performed without the use of intravenous contrast. IV contrast: None. A dose lowering technique was used consistent with the principles of ALARA (as low as reasonably achievable). COMPARISON: 11/28/2015. CT DOSE (mGy.cm): The estimated cumulative dose is 1228.53 mGy.cm. FINDINGS: Consultant Education topogram: Unremarkable. Quality is degraded by motion artifact. Ventricles and sulci normal in size. Periventricular and subcortical white matter hypoattenuation, nonspecific but likely indicative of chronic small vessel ischemic change. Old lacunar infarct in the left basal ganglia. No mass effect or midline shift. No hemorrhage or acute territorial infarct. No extra-axial fluid collection. Paranasal sinuses and mastoid air cells clear. Calvarium intact. IMPRESSION: 1. No acute intracranial pathology. 2. Chronic small vessel ischemic change and old lacunar infarct left basal ganglia. Electronically signed by: Lorenzo Sotelo M.D. 07/15/2017 5:12 PM Dictated Date/Time: 07/15/2017 5:10 PM
[2017-07-15] MEDS ORDERED: CEFTRIAXONE SOD INJ 1 GM ADDVIAL IV STA (17:38)
[2017-07-15] MEDS ORDERED: ONDANSETRON INJ 2 MG/ML 2 ML VIAL IV PRN (19:00)
[2017-07-15] MEDS ORDERED: MAGNESIUM HYDROXIDE SUSP 30 ML UDC PO PRN (19:00)
[2017-07-15] MEDS ORDERED: ALUMINUM/MAGNESIUM/SIMETH (MAALOX MAX) 30 ML UDC PO PRN (19:00)
[2017-07-15] MEDS ORDERED: POLYETHYLENE (MIRALAX) 17 GM PACK PO PRN (19:00)
[2017-07-15] MEDS ORDERED: FENTANYL 12 MCG/HR TDSY TD SCH (19:00)
[2017-07-15 19:24] VITALS: Ht 160 cm; Wt 42.4 kg
[2017-07-15 20:20] VITALS: BP 210/107; PULSE 87; TEMP 37.1; O2SAT 94
[2017-07-15] MEDS ORDERED: IV FLUIDS COMPLETED PRN ×2 (20:45→21:00)
[2017-07-15] MEDS ORDERED: NON-FORMULARY MEDICATION (Melatonin 5 MG) PO SCH (21:00)
[2017-07-15] MEDS: SODIUM CHLOR 0.45% + 20MEQ KCL 1,000 ML IV SCH (21:14)
[2017-07-15] MEDS: CARBIDOPA/LEVODOPA 25-250 1 EA TAB PO SCH (21:14)
[2017-07-15] MEDS: DONEPEZIL HCL 10 MG TAB PO SCH (21:14)
[2017-07-15] MEDS: QUETIAPINE FUMARATE 100 MG TAB PO SCH (21:14)
[2017-07-15] MEDS ORDERED: LIDODERM (LIDOCAINE) PATCH 5% TD ONE (21:21)
--- NOTE | 2017-07-15 21:21 | History and Physical ---
History & Physical Date of Service Jul 15, 2017. History & Physical admit #[id number]
--- NOTE | 2017-07-15 22:04 | HISTORY & PHYSICAL EXAMINATION ---
DATE OF ADMISSION: 07/15/2017 ADMISSION HISTORY AND PHYSICAL CHIEF COMPLAINT: Back pain, weakness and confusion. HISTORY OF PRESENT ILLNESS: History is actually obtained from the ER and the patient's daughter as the patient herself is a bit delirious and mildly agitated and does not really answer questions, but really be able to answer the questions if she was trying. According to the daughter, the patient does suffer from chronic back pain, about a week ago she had worsening of her back pain really that led to her not getting up and moving and that led to her not eating and drinking and then it started her overall declining. They were trying to manage her at home utilizing topicals and utilizing pain meds as possible. They called the PCP who she had been on a fentanyl patch before and he started her on this, although because of various issues, unfortunately, the daughter was unable to get this started until basically yesterday; however, during the course of the week, the patient continued to decline, was not eating and drinking well, became as the daughter described weight, became progressively more confused where she was out of it and not really answering questions very well. They brought her to the ER 2 days ago. Chest x-ray was checked with concerns of a mass and a concern of hepatic lesion. CT abdomen and pelvis showed apparent soft tissue mass in the peripyloric region but very limited evaluation due to motion. CT of the chest showed no left upper lobe abnormality corresponding to the questionable mass likely artifact. She was given fentanyl and then was felt safe to send home, but unfortunately she was continuing to struggle, continuing to fail and the family brought her in today. The patient herself offers no HPI. REVIEW OF SYSTEMS: Mostly asking me to leave her alone, although somewhat politely in her agitation. Review of systems is otherwise negative, except for as above. PAST MEDICAL HISTORY: Includes chronic back pain, GERD, hypertension, and osteoporosis. MEDICATIONS: Home meds are Fosamax 70 mg weekly, Colace 100 mg daily, Aricept 10 mg daily; fentanyl patch 12 mcg apply q. 3 days, she had been on it before most recently, it was just started yesterday; lidocaine patch to affected area p.r.n. pain, lisinopril 2.5 mg daily, omeprazole 20 mg daily, Seroquel 100 mg at bedtime, Sinemet 25/250 q.i.d., zolpidem 5 mg at bedtime p.r.n. insomnia. ALLERGIES: DICLOFENAC, RISPERIDONE, ROPINIROLE, STRAWBERRIES, SULFAMETHOXAZOLE AND TRIMETHOPRIM. PAST SURGICAL HISTORY: None of note. FAMILY HISTORY: Coronary artery disease, especially in the brother. SOCIAL HISTORY: She is not a smoker. She is . She lives at home with family support, although at this point, the family notes they are not able to care for, in her current state. PHYSICAL EXAMINATION: VITAL SIGNS: Temperature 37, pulse 77, respiratory rate 18, blood pressure 158/71, 98% on room air. GENERAL: She is lying in bed, appears a little bit uncomfortable, also appears upset, no respiratory distress, nonsevere pain. HEENT: Normocephalic, atraumatic. Mucous membranes are dry. CARDIOVASCULAR: Regular. No rubs, murmurs, or gallops. LUNGS: Clear to auscultation bilaterally. No rales, rhonchi, or wheezes with good effort. ABDOMEN: Soft, nondistended, nontender, no masses or organomegaly. EXTREMITIES: Without cyanosis, clubbing or edema. No calf tenderness. SKIN: Shows no rashes, no pallor or icterus. NEUROLOGIC: Shows cranial nerves II-XII to be grossly intact as best can be assessed. Gross motor and sensory are intact as best can be assessed. MUSCULOSKELETAL: Shows a decent amount of muscle wasting globally and as best I can feel before she asks me to leave her alone her lumbar spine paraspinals are hypertonic and decreased range of motion. MENTAL STATUS: Confused and mildly agitated, although not combative or violent. LABS AND DIAGNOSTICS: CBC shows a white count of 8.99, hemoglobin 13, platelets 328. Complete metabolic panel with sodium 143, potassium 3.3, chloride 106, CO2 30, BUN 25, creatinine 1.2, BUN to creatinine ratio of 21 almost, calcium 9.2, glucose 89. Lactate 1.75. Total bili 0.6 with a direct of 0.2, AST 17, ALT 10, alkaline phosphatase 54. Troponin of less than 0.030. Total protein 7.3, albumin 3.9, lipase 136. TSH 1.080. Urinalysis - dark yellow, cloudy, specific gravity 1.039, 1+ protein, 1+ ketones, positive nitrites, moderate leukocyte esterase, greater than 30 white cells, 5-10 red cells, 5-10 hyaline casts, 10-20 epithelials cells, 4+ bacteria. EKG - lot of motion artifact, it appears to be sinus, may be LVH. Blood and urine cultures are sent and are pending. Head CT shows no acute intracranial pathology, chronic small vessel ischemic changes, old lacunar infarct in left basal ganglia. Chest x-ray shows no acute cardiopulmonary disease. ASSESSMENT AND PLAN: 1. This failure to thrive. This appears to be multifactorial including a urinary tract infection, dehydration, poor nutrition and back pain. 2. Acute on chronic back pain. It appears it has been a while since the back was imaged. She examines as best I can tell as though it is predominantly a muscular ligamentous worsening; however, given her age, osteoporosis, etc., it is certainly worthwhile to get at least plain films to ensure there is not any acute spinal pathology, beyond that it appears predominantly muscular ligamentous. We will give a trial of Voltaren gel, PT and OT and hopefully she will allow them to work with her. Certainly she appears to be a decent candidate for soft tissue focused manipulative medicine if she would allow as well. 3. Dehydration, mild, probably due to poor p.o. intake. IV fluids and follow. 4. Urinary tract infection, likely due to her declining state and her dehydration. She has been started on Rocephin in the ER. We will continue this pending the follow up cultures. 5. Dementia, probably contributing to her agitation with her delirium. 6. Questionable abdominal lesion on CT from 2 days ago. Outpatient followup. 7. Hypokalemia, replete. 8. Deep venous thrombosis prophylaxis, Lovenox. 9. Overall weakness. PT, OT eval and treat. I had an extensive discussion with the patient's daughter that certainly depending on how she progresses, at least short term placement may be necessary. The daughter is very grateful this as she was feeling very overwhelmed at home and while she wants her mother to be back home, she notes that in her current state, she would absolutely not be able to take care of her. Due to all of the above comorbidities, it is exceedingly like she will be here many midnights which is significantly more than 2. MTDD
[2017-07-15] MEDS ORDERED: AMLODIPINE BESYLATE 5 MG TAB PO STA (22:21)
[2017-07-15 23:57] VITALS: BP 99/62; PULSE 77; TEMP 36.6; O2SAT 94
[2017-07-16] MEDS: CHECK FENTANYL PATCH PLACEMENT SCH ×4 (00:10→23:50)
[2017-07-16 06:11] LABS: BASO % 0.8 %; BASO ABS # 0.05 K/uL (0-0.2); COMPLETE YES; EOS % 4.2 %; HEMATOCRIT 37.2 % (37-47); IG% 0.3 %; LYMPH % 20.5 %; LYMPH ABS # 1.36 K/uL (1.2-3.4); MEAN CELL VOLUME 94.7 fL (80-100); MEAN CORPUSCULAR HEMOGLOBIN 30.5 pg (25-34); MEAN CORPUSCULAR HGB CONC 32.3 g/dl (32-36); MEAN PLATELET VOLUME 9.3 fL (7.4-10.4); MONO % 10.4 %; NEUT % 63.8 %; PLATELET COUNT 267 K/uL (130-400); RED BLOOD COUNT 3.93 M/uL (4.2-5.4); WHITE BLOOD COUNT 6.64 K/uL (4.8-10.8)
[2017-07-16 06:52] LABS: CALCIUM 8.3 mg/dl (8.5-10.1); CREATININE 0.87 mg/dl (0.60-1.20); POTASSIUM 3.5 mmol/L (3.5-5.1)
[2017-07-16 07:58] VITALS: BP 171/80; PULSE 61; TEMP 36.6; O2SAT 97
[2017-07-16] MEDS: LIDODERM (LIDOCAINE) PATCH 5% TD SCH (08:25)
[2017-07-16] MEDS: CARBIDOPA/LEVODOPA 25-250 1 EA TAB PO SCH ×4 (08:26→20:50)
[2017-07-16] MEDS: PANTOprazole SOD 40 MG TAB PO SCH (08:27)
[2017-07-16] MEDS: DOCUSATE SODIUM 100 MG CAP PO SCH (08:27)
[2017-07-16] MEDS: HEPARIN SOD 5000 UNIT/0.5 ML CARP SQ SCH ×2 (08:30→21:00)
--- NOTE | 2017-07-16 09:11 | DIAGNOSTIC IMAGING REPORT ---
LUMBAR SPINE 2 OR 3 VIEWS HISTORY: 81 years-old Female acute on chronic lumbar back pain COMPARISON: CT abdomen and pelvis 07/13/2017 TECHNIQUE: Frontal and lateral views of the lumbar spine. FINDINGS: The bones are osteopenic. Convex left curvature of the lumbar spine is redemonstrated. Multilevel advanced discogenic degenerative changes, endplate spurring and facet arthropathy is noted throughout the lumbar spine. There is unchanged 6 mm retrolisthesis L1 on L2, 5 mm retrolisthesis L3 on L4 and 7 mm anterolisthesis L4 on L5, unchanged from comparison CT. These findings are likely on a degenerative basis secondary to underlying severe facet disease. No acute compression deformity is identified. Cannulated screws of the left femoral neck are partially imaged. Mild right and [id number] left hip degenerative changes are noted. Vascular calcifications are seen. IMPRESSION: 1. No acute lumbar spine fracture or subluxation identified. 2. Multilevel advanced degenerative changes of the lumbar spine with unchanged alignment as above, likely secondary to underlying severe facet arthropathy. The above report was generated using voice recognition software. It may contain grammatical, syntax or spelling errors. Electronically signed by: Andrei Vann M.D. 07/16/2017 9:10 AM Dictated Date/Time: 07/16/2017 9:07 AM
[2017-07-16 09:25] VITALS: BP 184/75; PULSE 66
[2017-07-16] MEDS ORDERED: NURSING VERBAL MED ORDER ONE (09:45)
[2017-07-16 10:41] VITALS: BP 157/76
[2017-07-16] MEDS: SODIUM CHLOR 0.45% + 20MEQ KCL 1,000 ML IV SCH ×2 (10:56→23:49)
[2017-07-16 16:42] VITALS: BP 220/90; PULSE 55; TEMP 36.2; O2SAT 97
--- NOTE | 2017-07-16 16:54 | Progress Note ---
Subjective Date of Service: Jul 16, 2017. Subjective pt was sleeping on arrival was awakened and pleasant states that her pain is improved but she remains pleasantly confused Problem List Medical Problems: (1) Abdominal pain, acute, left lower quadrant Status: Acute (2) Altered mental status Status: Acute (3) Back pain Status: Acute (4) Contusion of left foot Status: Acute (5) Dehydration Status: Acute (6) Dehydration Status: Acute (7) Dementia Status: Acute (8) UTI (urinary tract infection) Status: Acute Review of Systems Constitutional: + weakness, + fatigue, No fever, No chills Respiratory: No cough, No shortness of breath Cardiac: No chest pain, No edema Abdomen: No pain, No nausea, No vomiting, No diarrhea Musculoskeletal: + muscle pain, + swelling, + problem reported (back pain) Female : No dysuria, No urinary frequency Objective Vital Signs Date Time Temp Pulse Resp B/P (MAP) Pulse Ox O2 Delivery O2 Flow Rate FiO2 07/16/17 09:25 66 184/75 (111) 07/16/17 07:58 36.6 61 18 171/80 (110) 97 Room Air 07/16/17 00:01 Room Air 07/15/17 23:57 36.6 77 18 99/62 (74) 94 Nasal Cannula 07/15/17 20:20 37.1 87 18 210/107 (141) 94 07/15/17 19:46 88 19 185/110 97 07/15/17 19:24 Room Air 07/15/17 19:06 85 14 07/15/17 19:02 83 07/15/17 18:36 80 15 96 07/15/17 18:06 70 16 95 07/15/17 17:36 75 11 97 07/15/17 17:31 189/144 198/94 07/15/17 17:29 77 96 07/15/17 16:29 74 12 96 07/15/17 15:59 74 12 97 07/15/17 15:29 81 14 95 07/15/17 14:59 76 13 95 07/15/17 14:46 37.0 77 18 158/71 98 Room Air 07/15/17 14:40 82 07/15/17 14:34 158/71 Physical Exam General Appearance: + mild distress, + thin Eyes: PERRL, EOMI Neck: supple, trachea midline Respiratory/Chest: chest non-tender, lungs clear, + decreased breath sounds Cardiovascular: regular rate, rhythm, no murmur Abdomen: normal bowel sounds, non tender, soft Extremities: no pedal edema, no calf tenderness Neurologic/Psychiatric: alert, oriented x 3 Laboratory Results Last 24 Hours Test 07/15/17 15:24 07/15/17 15:32 07/15/17 15:33 07/15/17 16:30 White Blood Count 8.99 K/uL Red Blood Count 4.03 M/uL Hemoglobin 13.0 g/dL Hematocrit 37.7 % Mean Corpuscular Volume 93.5 fL Mean Corpuscular Hemoglobin 32.3 pg Mean Corpuscular Hemoglobin Concent 34.5 g/dl Platelet Count 328 K/uL Mean Platelet Volume 9.2 fL Neutrophils (%) (Auto) 70.5 % Lymphocytes (%) (Auto) 16.6 % Monocytes (%) (Auto) 9.2 % Eosinophils (%) (Auto) 2.6 % Basophils (%) (Auto) 0.9 % Neutrophils # (Auto) 6.34 K/uL Lymphocytes # (Auto) 1.49 K/uL Monocytes # (Auto) 0.83 K/uL Eosinophils # (Auto) 0.23 K/uL Basophils # (Auto) 0.08 K/uL RDW Standard Deviation 45.2 fL RDW Coefficient of Variation 13.2 % Immature Granulocyte % (Auto) 0.2 % Immature Granulocyte # (Auto) 0.02 K/uL Sodium Level 143 mmol/L Potassium Level 3.3 mmol/L Chloride Level 106 mmol/L Carbon Dioxide Level 30 mmol/L Anion Gap 7.0 mmol/L Blood Urea Nitrogen 25 mg/dl Creatinine 1.20 mg/dl Est Creatinine Clear Calc Drug Dose 23.8 ml/min Estimated GFR () 48.4 Estimated GFR (Non- 41.8 BUN/Creatinine Ratio 20.9 Random Glucose 89 mg/dl Calcium Level 9.2 mg/dl Total Bilirubin 0.6 mg/dl Direct Bilirubin 0.2 mg/dl Aspartate Amino Transf (AST/SGOT) 17 U/L Alanine Aminotransferase (ALT/SGPT) 10 U/L Alkaline Phosphatase 54 U/L Total Protein 7.3 gm/dl Albumin 3.9 gm/dl Lipase 136 U/L Thyroid Stimulating Hormone (TSH) 1.080 uIu/ml Bedside Troponin I < 0.030 ng/ml Bedside Lactic Acid Venous 1.75 mmol/L Urine Color DK YELLOW Urine Appearance CLOUDY Urine pH 5.0 Urine Specific Julian 1.039 Urine Protein 1+ Urine Glucose (UA) NEG Urine Ketones 1+ Urine Occult Blood NEG Urine Nitrite POS Urine Bilirubin NEG Urine Urobilinogen NEG Urine Leukocyte Esterase MODERATE Urine WBC (Auto) >30 /hpf Urine RBC (Auto) 5-10 /hpf Urine Hyaline Casts (Auto) 5-10 /lpf Urine Epithelial Cells (Auto) 10-20 /lpf Urine Bacteria (Auto) 4+ Urine Pathogenic Casts /lpf Test 07/16/17 05:40 White Blood Count 6.64 K/uL Red Blood Count 3.93 M/uL Hemoglobin 12.0 g/dL Hematocrit 37.2 % Mean Corpuscular Volume 94.7 fL Mean Corpuscular Hemoglobin 30.5 pg Mean Corpuscular Hemoglobin Concent 32.3 g/dl Platelet Count 267 K/uL Mean Platelet Volume 9.3 fL Neutrophils (%) (Auto) 63.8 % Lymphocytes (%) (Auto) 20.5 % Monocytes (%) (Auto) 10.4 % Eosinophils (%) (Auto) 4.2 % Basophils (%) (Auto) 0.8 % Neutrophils # (Auto) 4.24 K/uL Lymphocytes # (Auto) 1.36 K/uL Monocytes # (Auto) 0.69 K/uL Eosinophils # (Auto) 0.28 K/uL Basophils # (Auto) 0.05 K/uL RDW Standard Deviation 45.7 fL RDW Coefficient of Variation 13.2 % Immature Granulocyte % (Auto) 0.3 % Immature Granulocyte # (Auto) 0.02 K/uL Sodium Level 144 mmol/L Potassium Level 3.5 mmol/L Chloride Level 110 mmol/L Carbon Dioxide Level 27 mmol/L Anion Gap 7.0 mmol/L Blood Urea Nitrogen 24 mg/dl Creatinine 0.87 mg/dl Est Creatinine Clear Calc Drug Dose 32.8 ml/min Estimated GFR () 71.4 Estimated GFR (Non- 61.6 BUN/Creatinine Ratio 27.0 Random Glucose 75 mg/dl Calcium Level 8.3 mg/dl Assessment and Plan 81 Metabolic Encephalopathy from UTI poa, on baseline dementia from Parkinsons disease Gram negative UTI poa on ceftriaxone Acute on chronic back pain. Voltaren gel, PT and OT , may need chronic pain control Dehydration, due to poor p.o. intake. IVF Dementia, continue aricept and hs trazadone Questionable abdominal lesion on CT from 2 days ago. LFT are normal will eventfully need liver US Deep venous thrombosis prophylaxis, Lovenox.
[2017-07-16] MEDS ORDERED: LISINOPRIL 2.5 MG TAB PO SCH (17:00)
[2017-07-16] MEDS: HydrALAZINE HCL 20 MG/ML VIAL IV. PRN (17:09)
[2017-07-16] MEDS: CEFTRIAXONE SOD INJ 1,000 MG in DEXTROSE 5% 50ML 50 ML IV SCH (17:16)
[2017-07-16] MEDS: DONEPEZIL HCL 10 MG TAB PO SCH (20:49)
[2017-07-16] MEDS: QUETIAPINE FUMARATE 100 MG TAB PO SCH (20:50)
[2017-07-16] MEDS: BOOST PLUS VANILLA PO SCH ×2 (20:50)
[2017-07-16] MEDS: ACETAMINOPHEN 325 MG TAB PO PRN (21:04)
[2017-07-16 21:06] VITALS: BP 102/71
[2017-07-16 23:44] VITALS: BP 99/62; PULSE 83; TEMP 36.4; O2SAT 95
[2017-07-17] VITALS: O2SAT 95
[2017-07-17 07:35] VITALS: BP_SYST 202; BP_SYST 229; BP_DIAS 82; BP_DIAS 92; PULSE 68; TEMP 36.5; O2SAT 96
[2017-07-17 08:00] VITALS: O2SAT 96
[2017-07-17] MEDS: HydrALAZINE HCL 20 MG/ML VIAL IV. PRN (08:03)
[2017-07-17] MEDS: LIDODERM (LIDOCAINE) PATCH 5% TD SCH (08:04)
[2017-07-17] MEDS: DOCUSATE SODIUM 100 MG CAP PO SCH (08:04)
[2017-07-17] MEDS: CARBIDOPA/LEVODOPA 25-250 1 EA TAB PO SCH ×4 (08:04→20:52)
[2017-07-17] MEDS: CHECK FENTANYL PATCH PLACEMENT SCH ×2 (08:06→16:00)
[2017-07-17] MEDS: HEPARIN SOD 5000 UNIT/0.5 ML CARP SQ SCH ×2 (08:06→20:59)
[2017-07-17] MEDS: PANTOprazole SOD 40 MG TAB PO SCH (08:08)
[2017-07-17] MEDS: BOOST PLUS VANILLA PO SCH ×6 (08:08→21:31)
--- NOTE | 2017-07-17 09:17 | Clinical Documentation Query ---
CLINICAL DOCUMENTATION QUERY 81 year old female who presents to the Emergency Room with complaints of weakness and failure to thrive. In your clinical opinion is this patient being managed for: ( xx ) Severe protein-calorie malnutrition in setting of chronic illness treated with dietary consult, liberal diet, snacks and Boost TID. ( ) Not Agree ( ) Other explanation of clinical findings (Please Explain) ( ) Unable to determine (Please Define) ( ) Need to Discuss The medical record reflects the following clinical findings, treatment, and risk factors. Clinical Indicators: Weakness. Dietary consult states 25% loss in weight over last 6 months. BMI 16.6 (underweight). Treatment: Boost TID, Dietary consult, snacks BID, Risk Factors: Age, dementia, Parkinson's Please clarify and document your clinical opinion in the progress notes and discharge summary. Terms such as "probable", "suspected", "likely", "questionable", "possible", or "still to be ruled out" are acceptable. IF IN AGREEMENT, YOU MUST DOCUMENT ABOVE DIAGNOSTIC STATEMENT IN DAILY PROGRESS NOTES AND DISCHARGE SUMMARY. This document is not part of the patient's record. Malnutrition Characteristics (2 of 6) in Chronic Illness CHARACTERISTICS MODERATE MALNUTRITION SEVERE MALNUTRITION ENERGY INTAKE <75% of estimated energyrequirement for >1 month <75% of estimated energyrequirement for >1 month WEIGHT LOSS 5%/1 month 7.5%/3 months 10%/6 months 20%/1 year > 5%/1 month >7.5%/3 months >10%/6 months >20%/1 year BODY FAT*loss of SQ fat from the orbits,triceps, or fat overlying the ribs MILD SEVERE MUSCLE MASS*muscle wasting at the temples,clavicles, shoulders, interosseousspaces,scapula, thigh, calf MILD SEVERE FLUID ACCUMULATION*localized or generalized edemaof the extremities, vulva, scrotumweight loss may be masked byedema MILD SEVERE DYNAMIC BALANCER STRENGTH N/A measurably decreased perthe device's standards Thank You, Maykel Nj, RN [phone]
[2017-07-17 10:16] LABS: BUN/CREATININE RATIO 17.4 (10-20); CALCIUM 9.2 mg/dl (8.5-10.1); CREATININE 0.72 mg/dl (0.60-1.20); MAGNESIUM 1.5 mg/dl (1.8-2.4); POTASSIUM 3.7 mmol/L (3.5-5.1)
[2017-07-17 16:00] VITALS: O2SAT 96
[2017-07-17] MEDS: LISINOPRIL 5 MG TAB PO SCH (17:16)
[2017-07-17] MEDS: CEFTRIAXONE SOD INJ 1,000 MG in DEXTROSE 5% 50ML 50 ML IV SCH (18:16)
--- NOTE | 2017-07-17 18:49 | Progress Note ---
Subjective Date of Service: Jul 17, 2017. Subjective Patient remains confused and agitated picking at her blankets and her IV site, she is not oriented to place or time but is oriented to person she has no focal complaints other than wanting to "get out of here" Problem List Medical Problems: (1) Abdominal pain, acute, left lower quadrant Status: Acute (2) Altered mental status Status: Acute (3) Back pain Status: Acute (4) Contusion of left foot Status: Acute (5) Dehydration Status: Acute (6) Dehydration Status: Acute (7) Dementia Status: Acute (8) UTI (urinary tract infection) Status: Acute Review of Systems Constitutional: + weakness, + problem reported (review of systems is not reliable given the degree of her confusion and baseline dementia), No fever, No chills Objective Vital Signs Date Time Temp Pulse Resp B/P (MAP) Pulse Ox O2 Delivery O2 Flow Rate FiO2 07/17/17 08:00 96 Room Air 07/17/17 07:35 36.5 68 22 229/82 (131) 96 Room Air 202/92 (128) 07/17/17 00:00 95 Room Air 07/16/17 23:44 36.4 83 16 99/62 (74) 95 Room Air 07/16/17 21:06 102/71 (81) Physical Exam General Appearance: + mild distress, + thin Eyes: PERRL, EOMI Respiratory/Chest: chest non-tender, lungs clear, normal breath sounds Cardiovascular: regular rate, rhythm, no murmur Abdomen: normal bowel sounds, non tender, soft Extremities: no pedal edema, no calf tenderness Laboratory Results Last 24 Hours Test 07/17/17 08:53 07/17/17 09:17 25-Hydroxy Vitamin D Total 18.9 ng/ml Sodium Level 140 mmol/L Potassium Level 3.7 mmol/L Chloride Level 106 mmol/L Carbon Dioxide Level 26 mmol/L Anion Gap 8.0 mmol/L Blood Urea Nitrogen 13 mg/dl Creatinine 0.72 mg/dl Est Creatinine Clear Calc Drug Dose 38.9 ml/min Estimated GFR () 89.1 Estimated GFR (Non- 76.9 BUN/Creatinine Ratio 17.4 Random Glucose 100 mg/dl Calcium Level 9.2 mg/dl Magnesium Level 1.5 mg/dl Assessment and Plan 81 Metabolic Encephalopathy from UTI poa, on baseline severe dementia from Parkinsons disease Gram negative UTI poa on ceftriaxone, this is a quinolone resistant Escherichia coli we will complete supple point therapy at the retirement Acute on chronic back pain. Voltaren gel, PT and OT , may need chronic pain control Marked hypertension this may be from IV fluid hydration will increase lisinopril add when necessary hydralazine Dementia, continue aricept and hs trazadone Questionable abdominal lesion on CT from 2 days ago. LFT are normal will eventfully need liver US if family believes this is beneficial Deep venous thrombosis prophylaxis, Lovenox. Attempted to call Rubi with no answered phone number per case management patient will be referred to [facility]
[2017-07-17 19:22] VITALS: BP 132/60; PULSE 61
[2017-07-17] MEDS: DONEPEZIL HCL 10 MG TAB PO SCH ×2 (20:52→21:57)
[2017-07-17] MEDS: QUETIAPINE FUMARATE 100 MG TAB PO SCH ×2 (20:52→21:57)
[2017-07-17 21:13] VITALS: PULSE 83; TEMP 36.9
[2017-07-17] MEDS: MAGNESIUM SULFATE 1GM / D5W 1 GM in PREMIXED IN D5W 100 ML IV SCH ×2 (22:10→22:58)
[2017-07-18 01:24] VITALS: O2SAT 96
[2017-07-18 06:50] LABS: CREATININE 0.75 mg/dl (0.60-1.20)
[2017-07-18] MEDS: DOCUSATE SODIUM 100 MG CAP PO SCH (07:37)
[2017-07-18] MEDS: BOOST PLUS VANILLA PO SCH ×6 (07:37→20:08)
[2017-07-18] MEDS: CARBIDOPA/LEVODOPA 25-250 1 EA TAB PO SCH ×4 (07:37→20:08)
[2017-07-18] MEDS: LIDODERM (LIDOCAINE) PATCH 5% TD SCH (07:38)
[2017-07-18 08:00] VITALS: O2SAT 96
[2017-07-18] MEDS: PANTOprazole SOD 40 MG TAB PO SCH (08:29)
[2017-07-18] MEDS: CHECK FENTANYL PATCH PLACEMENT SCH ×3 (08:29→15:42)
[2017-07-18] MEDS: HEPARIN SOD 5000 UNIT/0.5 ML CARP SQ SCH ×2 (08:43→20:14)
[2017-07-18] MEDS ORDERED: FENTANYL PATCH REMOVE & WASTE SCH (08:59)
[2017-07-18] MEDS ORDERED: FENTANYL 12 MCG/HR TDSY TD SCH (09:00)
[2017-07-18 09:17] VITALS: BP 119/72; PULSE 77; TEMP 36.6; O2SAT 94
[2017-07-18] MEDS ORDERED: MAGNESIUM SULFATE 1GM / D5W 1 GM in PREMIXED IN D5W 100 ML IV STA (09:23)
--- NOTE | 2017-07-18 16:50 | Progress Note ---
Subjective Date of Service: Jul 18, 2017. Subjective This patient is pleasantly confused and much more cooperative today she offers no complaints but is not oriented to place or time she is still picking at her clothes and her blankets. I spoke to her daughter Rubi mei 04/24/2009 and she informs me that she plans on having the patient come home with the fact that she has 24-hour caregivers and would only send her to halfway if rehabilitation would offer her some potential. We reviewed the fact that the patient has refused rehabilitation while here Problem List Medical Problems: (1) Abdominal pain, acute, left lower quadrant Status: Acute (2) Altered mental status Status: Acute (3) Back pain Status: Acute (4) Contusion of left foot Status: Acute (5) Dehydration Status: Acute (6) Dehydration Status: Acute (7) Dementia Status: Acute (8) UTI (urinary tract infection) Status: Acute Review of Systems Constitutional: + weakness, + fatigue, + problem reported (full review of systems is limited given her marked dementia), No fever, No chills Objective Vital Signs Date Time Temp Pulse Resp B/P (MAP) Pulse Ox O2 Delivery O2 Flow Rate FiO2 07/18/17 01:24 96 Room Air 07/17/17 21:13 36.9 83 20 07/17/17 19:22 61 132/60 (84) 07/17/17 16:00 96 Room Air Physical Exam General Appearance: + mild distress, + thin Eyes: PERRL, EOMI Neck: supple, no JVD Respiratory/Chest: + decreased breath sounds, + accessory muscle use Cardiovascular: regular rate, rhythm, no murmur Abdomen: normal bowel sounds, non tender, soft Neurologic/Psychiatric: alert, + disoriented Laboratory Results Last 24 Hours Test 07/17/17 09:17 07/18/17 05:36 Sodium Level 140 mmol/L Potassium Level 3.7 mmol/L Chloride Level 106 mmol/L Carbon Dioxide Level 26 mmol/L Anion Gap 8.0 mmol/L Blood Urea Nitrogen 13 mg/dl Creatinine 0.72 mg/dl 0.75 mg/dl Est Creatinine Clear Calc Drug Dose 38.9 ml/min 37.4 ml/min Estimated GFR () 89.1 84.8 Estimated GFR (Non- 76.9 73.2 BUN/Creatinine Ratio 17.4 Random Glucose 100 mg/dl Calcium Level 9.2 mg/dl Magnesium Level 1.5 mg/dl Assessment and Plan 81 Metabolic Encephalopathy from UTI poa, on baseline severe dementia from Parkinsons disease Gram negative UTI poa on ceftriaxone, this is a quinolone resistant Escherichia coli we can convert to oral cephalosporin when needed Acute on chronic back pain. Voltaren gel, PT and OT , may need chronic pain control, has improved with treatment of urinary tract infection Marked hypertension has improved after stopping IV fluid and increased lisinopril plus when necessary hydralazine Dementia, continue aricept and hs trazadone seems improved today Questionable abdominal lesion on CT from 2 days ago. LFT are normal will eventfully need liver US if family believes this is beneficial Deep venous thrombosis prophylaxis, Lovenox. severe protein calorie malnutrition Rubi her daughter will evaluate her performance when she sees her in the evening and help make a determination if we should pursue halfway facility versus returning home with caregivers
[2017-07-18] MEDS: LISINOPRIL 5 MG TAB PO SCH (17:14)
[2017-07-18] MEDS: CEFTRIAXONE SOD INJ 1,000 MG in DEXTROSE 5% 50ML 50 ML IV SCH (17:14)
[2017-07-18] MEDS: ACETAMINOPHEN 325 MG TAB PO PRN (17:17)
[2017-07-18] MEDS: QUETIAPINE FUMARATE 100 MG TAB PO SCH (20:07)
[2017-07-18] MEDS: DONEPEZIL HCL 10 MG TAB PO SCH (20:08)
[2017-07-19 00:12] VITALS: BP 118/71; PULSE 106; TEMP 36.7; O2SAT 93
[2017-07-19] MEDS: CHECK FENTANYL PATCH PLACEMENT SCH ×4 (00:23→23:46)
[2017-07-19] MEDS: LIDODERM (LIDOCAINE) PATCH 5% TD SCH (07:23)
[2017-07-19] MEDS: CARBIDOPA/LEVODOPA 25-250 1 EA TAB PO SCH ×4 (07:23→21:18)
[2017-07-19] MEDS: BOOST PLUS VANILLA PO SCH ×6 (07:23→21:20)
[2017-07-19] MEDS: DOCUSATE SODIUM 100 MG CAP PO SCH (07:23)
[2017-07-19] MEDS: PANTOprazole SOD 40 MG TAB PO SCH (07:24)
[2017-07-19] MEDS: HydrALAZINE HCL 20 MG/ML VIAL IV PRN (07:34)
[2017-07-19] MEDS: HEPARIN SOD 5000 UNIT/0.5 ML CARP SQ SCH ×2 (07:37→21:29)
[2017-07-19 08:00] VITALS: O2SAT 96
[2017-07-19 08:13] VITALS: BP_SYST 189; BP_SYST 195; BP_DIAS 78; BP_DIAS 81; PULSE 71; TEMP 36.6; O2SAT 96
[2017-07-19 09:00] VITALS: BP 95/60; PULSE 76
[2017-07-19] MEDS: ACETAMINOPHEN 325 MG TAB PO PRN (14:39)
[2017-07-19 15:10] VITALS: BP 82/52; TEMP 36.4
[2017-07-19] MEDS: LISINOPRIL 5 MG TAB PO SCH (17:01)
[2017-07-19 17:02] VITALS: BP 149/77; PULSE 86
--- NOTE | 2017-07-19 17:50 | Palliative Care Consultation ---
Consultation Date of Consultation: Jul 19, 2017. Requesting Physician: Dr. Veronica Attending Physician: Dr. Veronica Reason for Consultation: Goals of care History of Present Illness This 82 year old female patient with PMH advanced dementia and others listed below was admitted to the hospital with altered mental status and UTI. She lives home with caregivers and daughter who provide her 12/06 care. Her care needs have increased, she is losing weight, not getting out of bed much, and overall declining. Family is torn about plan/goal of care for the patient. Palliative care consulted to establish goals of care. Past Medical/Surgical History Medical History: Parkinson's/dementia Chronic back pain GERD Hypertension Osteoporosis Social History Smoking Status: Never Smoker History of Alcohol Use: No Drug Use: none Marital Status: single Housing Status: lives alone Occupation Status: retired Review of Systems Respiratory: No cough, No shortness of breath Abdomen: No pain, No nausea, No vomiting limited ROS due to mental status Allergies Coded Allergies: Risperidone (Verified Allergy, Intermediate, HALLUCINATION, 07/15/17) Sulfamethoxazole w/Trimethoprim (Verified Allergy, Intermediate, CONFUSION , 07/15/17) Diclofenac (Verified Allergy, Unknown, ., 07/15/17) [place] (Verified Allergy, Unknown, UNKNOWN, 07/15/17) Ropinirole (Verified Adverse Reaction, Intermediate, hallucinations, ) Medications Current Inpatient Medications Medications (Trade) Dose Ordered Sig/Luis Route Start Time Stop Time Status Last Admin Dose Admin Heparin Sodium (Porcine) (Heparin Sq 5000 Unit/0.5ml) 5,000 unit Q12 SQ 07/16/17 09:00 08/15/17 08:59 07/19/17 07:37 5,000 UNIT Acetaminophen (Tylenol Tab) 650 mg Q4H PRN PO 07/15/17 19:00 08/14/17 18:59 07/19/17 14:39 650 MG Al Hydrox/Mg Hydrox/Simethicone (Maalox Max Susp) 15 ml Q4H PRN PO 07/15/17 19:00 08/14/17 18:59 Magnesium Hydroxide (Milk Of Magnesia Susp) 30 ml Q6H PRN PO 07/15/17 19:00 08/14/17 18:59 Polyethylene (Miralax Powder Packet) 17 gm DAILY PRN PO 07/15/17 19:00 08/14/17 18:59 Ondansetron HCl (Zofran Inj) 4 mg Q6H PRN IV 07/15/17 19:00 08/14/17 18:59 Ceftriaxone Sodium 1000 mg/ Dextrose 60 ml @ 100 mls/hr DAILY@1800 IV 07/16/17 18:00 07/25/17 17:59 07/18/17 17:14 100 MLS/HR Alendronate Sodium (Fosamax Tab) 70 mg Th@0630 PO 07/20/17 06:30 08/19/17 06:29 Docusate Sodium (coLACE CAP) 100 mg QAM PO 07/16/17 09:00 08/15/17 08:59 07/19/17 07:23 100 MG Donepezil HCl (Aricept Tab) 10 mg HS PO 07/15/17 21:00 08/14/17 20:59 07/18/17 20:08 10 MG Carbidopa/Levodopa (Sinemet 25/ 250MG Tab) 1 tab QID PO 07/15/17 21:00 08/14/17 20:59 07/19/17 11:22 1 TAB Quetiapine Fumarate (seroQUEL TAB) 100 mg HS PO 07/15/17 21:00 08/14/17 20:59 07/18/17 20:07 100 MG Pantoprazole Sodium (Protonix Tab) 40 mg QAM PO 07/16/17 09:00 08/15/17 08:59 07/19/17 07:24 40 MG Miscellaneous (Iv Fluids Completed) 1 ea PRN PRN N/A 07/15/17 20:45 07/15/18 20:44 Fentanyl (Duragesic Patch) 12 mcg Q3D TD 07/18/17 09:00 08/01/17 08:59 07/18/17 08:30 12 MCG Miscellaneous (Fentanyl Patch Remove & Waste) 1 ea Q3D N/A 07/18/17 08:59 08/17/17 08:58 07/18/17 08:44 1 EA Miscellaneous Information (Check Fentanyl Patch Placement) 1 ea QS N/A 07/16/17 00:00 08/15/17 00:00 07/19/17 16:07 1 EA Miscellaneous (Iv Fluids Completed) 1 ea PRN PRN N/A 07/15/17 21:00 07/15/18 20:59 Lidocaine (Lidoderm Patch 5%) 1 patch QAM TD 07/16/17 09:00 08/15/17 08:59 07/19/17 07:23 1 PATCH Miscellaneous (Remove Lidoderm Patch) 1 ea DAILY@21 N/A 07/16/17 21:00 08/15/17 20:59 07/18/17 20:08 1 EA Enteral Nutritional Formula (Boost Plus Vanilla) 1 can TID PO 07/16/17 21:00 08/15/17 20:59 07/19/17 07:23 1 CAN Lisinopril (Zestril Tab) 5 mg QD@1700 PO 07/17/17 17:00 08/15/17 16:59 07/18/17 17:14 5 MG Hydralazine HCl (HydrALAZINE INJ) 10 mg Q4H PRN IV 07/17/17 09:00 08/16/17 08:59 07/19/17 07:34 10 MG Physical Exam Date Time Temp Pulse Resp B/P (MAP) Pulse Ox O2 Delivery O2 Flow Rate FiO2 07/19/17 15:10 36.4 19 82/52 (62) 07/19/17 09:00 76 95/60 (72) 07/19/17 08:13 36.6 71 22 195/78 (117) 96 189/81 (117) 07/19/17 08:00 96 Room Air 07/19/17 00:20 Room Air 07/19/17 00:12 36.7 106 18 118/71 (87) 93 Room Air General Appearance: no apparent distress, + cachetic, + thin Neck: supple, no JVD Respiratory: no respiratory distress, no accessory muscle use Cardiovascular: regular rate, rhythm, no edema Abdomen: non tender, soft Neurologic/Psychiatric: alert, + disoriented Laboratory Results Last 24 Hours Test 07/19/17 07:58 Bedside Glucose 87 mg/dl Assessment & Plan Palliative Performance Scale: 40 % Problem list: Altered mental status/encephalopathy UTI Dehydration/decreased PO intake/malnutrition/Failure to thrive Acute on chronic back pain Dementia ?Abdominal lesion on CT Goals of care (Z51.5) Palliative care recs: spoke with both of patient's daughters/POAs Rubi and Shirley, and son Randall. -Daughter, Shirley, states that patient is DNR, but I did not specifically discuss this topic with Rubi and Randall. -Plan is to go to [facility], skilled initially. -I discussed transitioning to hospice after skilled benefit, family seemed to be agreeable. Shirley is 100% on board with comfort measures only and hospice, Rubi and Randall want to see if patient is able to improve at all first. They do want patient to be comfortable and have good quality of life. -If patient is able to improve enough to be one assist OOB, can go home with her caregivers. If she doesn't improve, will likely need to stay at SNF. -I gave family education on the progression of dementia and that Elizabeth is showing signs that she is end-stage. I was tisha about the fact that she is not likely to have much rehab potential and will continue to decline. They verbalized understanding. Thank you for this consult. Please contact me with any further palliative care needs.
[2017-07-19] MEDS: CEFTRIAXONE SOD INJ 1,000 MG in DEXTROSE 5% 50ML 50 ML IV SCH (18:14)
--- NOTE | 2017-07-19 19:53 | Progress Note ---
Subjective Date of Service: Jul 19, 2017. Subjective Patient remains pleasantly confused spoke other family member today. Concerns with the patient returning to home they did agree to palliative care consult, Lety did meet with all of the family we likely will pursue [facility]iary placement with palliative care direction. The patient was present during these conversations and due to the degree of her dementia was not participatory Problem List Medical Problems: (1) Abdominal pain, acute, left lower quadrant Status: Acute (2) Altered mental status Status: Acute (3) Back pain Status: Acute (4) Contusion of left foot Status: Acute (5) Dehydration Status: Acute (6) Dehydration Status: Acute (7) Dementia Status: Acute (8) UTI (urinary tract infection) Status: Acute Review of Systems Constitutional: No fever, No chills Respiratory: No cough, No wheezing, No shortness of breath Cardiac: No chest pain, No PND, No edema Abdomen: No pain, No nausea, No vomiting, No diarrhea Female : No dysuria, No urinary frequency Neurologic: + memory loss, + weakness, + balance problems, + problem reported ( patient has not walked for 2 years) Objective Vital Signs Date Time Temp Pulse Resp B/P (MAP) Pulse Ox O2 Delivery O2 Flow Rate FiO2 07/19/17 17:02 86 149/77 (101) 07/19/17 16:00 Room Air 07/19/17 15:10 36.4 19 82/52 (62) 07/19/17 09:00 76 95/60 (72) 07/19/17 08:13 36.6 71 22 195/78 (117) 96 189/81 (117) 07/19/17 08:00 96 Room Air 07/19/17 00:20 Room Air 07/19/17 00:12 36.7 106 18 118/71 (87) 93 Room Air Physical Exam General Appearance: + mild distress, + thin Neck: supple, no JVD Respiratory/Chest: chest non-tender, lungs clear, + decreased breath sounds ( bases) Cardiovascular: regular rate, rhythm, no murmur Abdomen: normal bowel sounds, non tender, soft Extremities: no pedal edema, no calf tenderness Neurologic/Psychiatric: alert, + depressed affect, + disoriented Laboratory Results Last 24 Hours Test 07/19/17 07:58 Bedside Glucose 87 mg/dl Assessment and Plan 83 Metabolic Encephalopathy from UTI poa, on baseline severe dementia from Parkinsons disease Gram negative UTI poa on ceftriaxone, this is a quinolone resistant Escherichia coli we can convert to oral cephalosporin when needed Acute on chronic back pain. Voltaren gel, PT and OT , may need chronic pain control, has improved with treatment of urinary tract infection hypertension lisinopril plus when necessary hydralazine better control Dementia, fairly severe on aricept and hs trazadone continues to seem improved Questionable abdominal lesion on CT from 2 days ago. No further workup anticipated Deep venous thrombosis prophylaxis, Lovenox. severe protein calorie malnutrition Daughters are present at the bedside degree of progressive dementia prevents meaningful return home given caregivers limitations we'll pursue [facility] home placement and likely palliative care
[2017-07-19] MEDS: DONEPEZIL HCL 10 MG TAB PO SCH (21:19)
[2017-07-19] MEDS: QUETIAPINE FUMARATE 100 MG TAB PO SCH (21:19)
[2017-07-20] VITALS: O2SAT 96
[2017-07-20 00:18] VITALS: BP 174/81; PULSE 128
[2017-07-20] MEDS ORDERED: ALENDRONATE SODIUM 70 MG TAB PO SCH (06:30)
[2017-07-20] MEDS: DOCUSATE SODIUM 100 MG CAP PO SCH (07:18)
[2017-07-20] MEDS: CARBIDOPA/LEVODOPA 25-250 1 EA TAB PO SCH ×2 (07:18→12:38)
[2017-07-20] MEDS: BOOST PLUS VANILLA PO SCH ×4 (07:19→12:39)
[2017-07-20] MEDS: CHECK FENTANYL PATCH PLACEMENT SCH (07:19)
[2017-07-20] MEDS: LIDODERM (LIDOCAINE) PATCH 5% TD SCH (07:19)
[2017-07-20] MEDS: HydrALAZINE HCL 20 MG/ML VIAL IV PRN (07:29)
[2017-07-20] MEDS: HEPARIN SOD 5000 UNIT/0.5 ML CARP SQ SCH (07:31)
[2017-07-20 08:00] VITALS: O2SAT 96
[2017-07-20] MEDS ORDERED: PANTOprazole SOD 40 MG TAB PO SCH (08:00)
[2017-07-20 08:10] VITALS: BP_SYST 205; BP_SYST 210; BP_DIAS 64; BP_DIAS 78; PULSE 67; TEMP 36.6; O2SAT 91
[2017-07-20 09:48] VITALS: BP 92/58; PULSE 77
[2017-07-20] MEDS ORDERED: CEFU250T15 PO (11:13)
[2017-07-20] MEDS ORDERED: DRGTP12 TOP (11:13)
[2017-07-20] MEDS ORDERED: LDDP5 TD (11:13)
--- NOTE | 2017-07-20 11:15 | Discharge Instructions ---
Discharge Instructions Date of Service Jul 20, 2017. Admission Reason for Admission: Dehydration, Uti Discharge Discharge Diagnosis / Problem: metabolic encephalopathy from uti poa, parkinsons dementia Discharge Goals Goal(s): Diagnostic testing, Therapeutic intervention Activity Recommendations Activity Level: Assistance Required Therapies: Physical Therapy, Occupational Therapy .83 Metabolic Encephalopathy from UTI poa, on baseline severe dementia from Parkinsons disease Gram negative UTI poa on ceftriaxone, this is a quinolone resistant Escherichia coli we can convert to ceftin at discharge Acute on chronic back pain. Voltaren gel, PT and OT , may need chronic pain control, has improved with treatment of urinary tract infection hypertension lisinopril did increase during stay may need more in future Dementia, fairly severe on aricept and hs trazadone , improved Questionable abdominal lesion on CT from 2 days ago. No further workup anticipated as famiily is pursuant of more comfort guided treatment severe protein calorie malnutrition, supplement and reasses Daughters are present at the bedside degree of progressive dementia prevents meaningful return home given caregivers limitations are hopeful halfway home placement will improve strength for transfer but if not will likely pursue comfort and likely palliative care Additional Information Patient informed of condition: Yes Advance Directives: Yes DNR: No Level of Care: Skilled Communicable Disease: No Prognosis: Stable Galvez Catheter: No Current Hospital Diet Patient's current hospital diet: AHA Diet (Heart Healthy) Discharge Diet Recommended Diet: Regular Diet Pending Studies Studies pending at discharge: no Physician Orders On Transfer POLST Discussion: without POLST completion Medical Emergencies . Who to Call and When: Medical Emergencies: If at any time you feel your situation is an emergency, please call 911 immediately. . Non-Emergent Contact Non-Emergency issues call your: Primary Care Provider Call Non-Emergent contact if: temperature is above 101, your pain is unusual for you . . "Provider Documentation" section prepared by Ash Veronica. . Core Measure Problem Core Measures: None
[2017-07-20 11:19] VITALS: BP 92/58; PULSE 77; TEMP 36.6; O2SAT 91
[2017-07-20] MEDS: ACETAMINOPHEN 325 MG TAB PO PRN (12:39)
--- NOTE | 2017-07-20 19:10 | Discharge Summary ---
Discharge Summary Date of Service Jul 20, 2017. Discharge Summary Admission Date: Jul 15, 2017 at 20:18 Discharge Date: Jul 20, 2017 [facility] Principal Diagnosis: metabolic encephalopathy, Parkinson's dementia Immunizations: Have You Had Influenza Vaccine: Unknown Influenza Vaccine Date: Aug 20, 2007 History of Tetanus Vaccine?: No History of Pneumococcal: Unknown Pneumococcal Date: Aug 20, 2007 History of Hepatitis B Vaccine: Unknown Procedures: Palliative care consult Medication Reconciliation New Medications: Cefuroxime Axetil (Ceftin) 250 Mg Tab 250 MG PO BID, #8 TAB Lidocaine (Lidocaine) 1 Patch Tdsy 1 PATCH TD QAM, #30 PATCH Continued Medications: Alendronate Sodium (Fosamax) 70 Mg Tab 70 MG PO WK, TAB TAKE THIS MEDICATION EVERY MONDAY Docusate Sodium (Stool Softener) 100 Mg Cap 100 MG PO QAM Donepezil HCl (Donepezil HCl) 10 Mg Tab 10 MG PO HS Fentanyl (Fentanyl) 12 Mcg Tdsy 12 MCG TOP [id number], #10 PATCH (This prescription has been renewed) Levodopa/Carbidopa (Carbidopa/Levodopa 25-250 mg) 1 Tab Tab 1 TAB PO QID Lisinopril (Lisinopril) 2.5 Mg Tab 5 MG PO QD@1700 Melatonin (Melatonin) 5 Mg Tab 5 MG PO HS Omeprazole (Prilosec) 20 Mg Capcr 20 MG PO QD@1700 Quetiapine Fumarate (Quetiapine Fumarate) 100 Mg Tab 100 MG PO HS Discharge Exam Review of Systems: Constitutional: No fever, No chills Respiratory: No cough, No sputum, No wheezing Cardiovascular: No chest pain, No orthopnea Neurologic: + memory loss, + weakness, + balance problems Psychiatric: + depression symptoms, + anxiety Physical Exam: General Appearance: no apparent distress, + thin Respiratory/Chest: chest non-tender, lungs clear, normal breath sounds Cardiovascular: regular rate, rhythm, no murmur Hospital Course .83 Metabolic Encephalopathy from UTI poa, on baseline severe dementia from Parkinsons disease Gram negative UTI poa on ceftriaxone, this is a quinolone resistant Escherichia coli we can convert to ceftin at discharge Acute on chronic back pain. Voltaren gel, PT and OT , may need chronic pain control, has improved with treatment of urinary tract infection hypertension lisinopril did increase during stay may need more in future Dementia, fairly severe on aricept and hs trazadone , improved Questionable abdominal lesion on CT from 2 days ago. No further workup anticipated as famiily is pursuant of more comfort guided treatment severe protein calorie malnutrition, supplement and reasses Daughters are present at the bedside degree of progressive dementia prevents meaningful return home given caregivers limitations are hopeful retirement home placement will improve strength for transfer but if not will likely pursue comfort and likely palliative care Total Time Spent: Greater than 30 minutes This includes examination of the patient, discharge planning, medication reconciliation, and communication with other providers. Discharge Instructions Please refer to the electronic Patient Visit Report (Discharge Instructions) for additional information.
== END 2017-07-20 14:18 | DRG 689 ==
LOC: EDBD 14:29 → C.EDC 14:30 → C.MED 19:01 → ENRESERV 19:30 → OBSVTOIN 20:18 → C.MS4W 07-17 21:46
PROVIDERS: ADMIT Family Medicine; ATTEND Internal Medicine
DX: N39.0 Urinary tract infection, site not specified (principal); G93.41 Metabolic encephalopathy; E43 Unspecified severe protein-calorie malnutrition; I10 Essential (primary) hypertension; K21.9 Gastro-esophageal reflux disease without esophagitis; G31.83 Neurocognitive disorder with Lewy bodies; Z88.2 Allergy status to sulfonamides; R62.7 Adult failure to thrive; E86.0 Dehydration; E87.6 Hypokalemia; F02.80 Dementia in other diseases classified elsewhere, unspecified severity, without behavioral disturbance, psychotic disturbance, mood disturbance, and anxiety; B96.20 Unspecified Escherichia coli [E. coli] as the cause of diseases classified elsewhere; M54.9 Dorsalgia, unspecified; M81.0 Age-related osteoporosis without current pathological fracture; Z82.49 Family history of ischemic heart disease and other diseases of the circulatory system; M54.5 Low back pain; F03.90 Unspecified dementia, unspecified severity, without behavioral disturbance, psychotic disturbance, mood disturbance, and anxiety; G20 Parkinson's disease; K52.9 Noninfective gastroenteritis and colitis, unspecified

== ENCOUNTER → 2017-07-28 | Outpatient (CLI) | payer OTHER ==
[~2017-07-28] MED LIST changes: +CEFU250T15 PO; +LDDP5 TD
[2017-07-28 08:50] LABS: BLOOD UREA NITROGEN 22 mg/dl (7-18); BUN/CREATININE RATIO 23.1 (10-20); CALCIUM 9.1 mg/dl (8.5-10.1); CARBON DIOXIDE 32 mmol/L (21-32); CHLORIDE 105 mmol/L (98-107); CREATININE 0.94 mg/dl (0.60-1.20); GLUCOSE 84 mg/dl (70-99); POTASSIUM 4.3 mmol/L (3.5-5.1); SODIUM 141 mmol/L (136-145)
== END ==
LOC: C.LABCC 08:14
PROVIDERS: ATTEND Internal Medicine
DX: I10 Essential (primary) hypertension (principal)

== ENCOUNTER → 2017-11-22 | Outpatient (CLI) | payer OTHER ==
[~2017-11-22] MED LIST changes: -CEFU250T15 PO; +QUET-115 PO; -SRQ100 PO
[2017-11-22 09:27] LABS: HEMATOCRIT 35.7 % (37-47); HEMOGLOBIN 12.1 g/dL (12.0-16.0); MEAN CELL VOLUME 95.7 fL (80-100); MEAN CORPUSCULAR HEMOGLOBIN 32.4 pg (25-34); MEAN CORPUSCULAR HGB CONC 33.9 g/dl (32-36); MEAN PLATELET VOLUME 10.2 fL (7.4-10.4); PLATELET COUNT 237 K/uL (130-400); RED CELL DISTRIBUTION WIDTH CV 13.2 % (11.5-14.5); RED CELL DISTRIBUTION WIDTH SD 45.8 fL (36.4-46.3); WHITE BLOOD COUNT 5.95 K/uL (4.8-10.8)
[2017-11-22 09:53] LABS: ALBUMIN 3.5 gm/dl (3.4-5.0); ALT/SGPT 12 U/L (12-78); AST/SGOT 12 U/L (15-37); BLOOD UREA NITROGEN 24 mg/dl (7-18); CARBON DIOXIDE 31 mmol/L (21-32); CREATININE 0.78 mg/dl (0.60-1.20); GLUCOSE 93 mg/dl (70-99); POTASSIUM 3.3 mmol/L (3.5-5.1); SODIUM 139 mmol/L (136-145)
[2017-11-22 09:56] LABS: ALKALINE PHOSPHATASE 54 U/L (45-117); TOTAL PROTEIN 6.7 gm/dl (6.4-8.2)
--- NOTE | 2017-11-29 08:14 | CODING QUERY MEDICAL NECESSITY ---
CQSUPPORTING DIAGNOSIS NEEDED A supporting diagnosis is required for the test/procedure performed on this patient in order for us to be reimbursed by the patient's insurance. Please provide a supporting diagnosis for the following test/procedure listed below next to the test name along with your signature. *If there is no additional diagnosis for this patient that would support the following test/procedure please document that below next to the test/procedure. DOS 11/22/17 URINE CULTURE PATIENT AT [facility] Provider Signature: Date: Thank you Sabina Kimball [facility] Information Management Once completed, please kindly fax back to [phone] For questions please call [phone]
== END ==
LOC: C.LABCC 09:02
PROVIDERS: ATTEND Internal Medicine
DX: I10 Essential (primary) hypertension (principal); R41.82 Altered mental status, unspecified; R29.6 Repeated falls

== ENCOUNTER → 2017-11-29 | Outpatient (CLI) | payer OTHER ==
[2017-11-29 09:16] LABS: BLOOD UREA NITROGEN 34 mg/dl (7-18); CALCIUM 8.8 mg/dl (8.5-10.1); CARBON DIOXIDE 31 mmol/L (21-32); CREATININE 0.83 mg/dl (0.60-1.20); GLUCOSE 91 mg/dl (70-99); POTASSIUM 3.6 mmol/L (3.5-5.1); SODIUM 141 mmol/L (136-145)
== END ==
LOC: C.LABCC 08:27
PROVIDERS: ATTEND Internal Medicine
DX: E87.6 Hypokalemia (principal)

== ENCOUNTER → 2018-03-15 | Outpatient (CLI) | payer OTHER ==
[2018-03-15 08:27] LABS: BASO % 1.8 %; BASO ABS # 0.11 K/uL (0-0.2); EOS % 2.7 %; EOS ABS # 0.17 K/uL (0-0.5); HEMATOCRIT 34.5 % (37-47); HEMOGLOBIN 11.6 g/dL (12.0-16.0); IG# 0.02 K/uL (0.00-0.02); LYMPH % 27.3 %; LYMPH ABS # 1.69 K/uL (1.2-3.4); MEAN CELL VOLUME 96.1 fL (80-100); MEAN CORPUSCULAR HEMOGLOBIN 32.3 pg (25-34); MEAN CORPUSCULAR HGB CONC 33.6 g/dl (32-36); MEAN PLATELET VOLUME 9.9 fL (7.4-10.4); MONO ABS # 0.68 K/uL (0.11-0.59); NEUT % 56.9 %; NEUT ABS # 3.52 K/uL (1.4-6.5); PLATELET COUNT 184 K/uL (130-400); RED CELL DISTRIBUTION WIDTH CV 13.3 % (11.5-14.5); RED CELL DISTRIBUTION WIDTH SD 46.7 fL (36.4-46.3); WHITE BLOOD COUNT 6.19 K/uL (4.8-10.8)
[2018-03-15 08:33] LABS: ALT/SGPT 9 U/L (12-78); AST/SGOT 13 U/L (15-37); BLOOD UREA NITROGEN 23 mg/dl (7-18); CALCIUM 8.5 mg/dl (8.5-10.1); CARBON DIOXIDE 30 mmol/L (21-32); CREATININE 0.83 mg/dl (0.60-1.20); GLUCOSE 91 mg/dl (70-99); POTASSIUM 3.9 mmol/L (3.5-5.1); SODIUM 142 mmol/L (136-145)
[2018-03-15 08:36] LABS: ALKALINE PHOSPHATASE 53 U/L (45-117); TOTAL PROTEIN 6.5 gm/dl (6.4-8.2)
== END ==
LOC: C.LABCC 08:15
PROVIDERS: ATTEND Internal Medicine
DX: D64.9 Anemia, unspecified (principal); G20 Parkinson's disease; R63.4 Abnormal weight loss